=== PATIENT | female | born 1960 | race Caucasian/White ===

== ENCOUNTER 2023-12-08 23:49 | Inpatient (IN) | payer OTHER ==
--- NOTE | 2023-12-09 00:11 | ED ---
General Adult HPI - General Chief complaint: Extremity Injury, Lower Stated complaint: Infection on Leg Time Seen by Provider: 12/09/23 00:08 Source: patient, RN notes reviewed Mode of arrival: wheelchair Limitations: no limitations - History of Present Illness Initial comments: 63-year-old female with history of type 2 diabetes mellitus and right below the knee amputation presents emergency department chief complaint of a abscess in her right groin. Patient states that this abscess has been present over the past week that has been growing in size in addition to becoming more increasingly painful. States that over the past few days she has been began to experience fevers and chills in addition to nausea. She denies drainage from the abscess. She denies abdominal pain, diarrhea, constipation, urinary symptoms, chest pain, shortness of breath, difficulty breathing. - Related Data Home Medications Medication Instructions Recorded Confirmed Fenofibrate 120 mg PO HS 12/09/23 12/09/23 Gabapentin [Neurontin] 900 mg PO TID 12/09/23 12/09/23 Semaglutide [Ozempic] 1 mg SQ FR 12/09/23 12/09/23 Torsemide [Soaanz] 20 mg PO DAILY 12/09/23 12/09/23 amLODIPine [Norvasc] 10 mg PO HS 12/09/23 12/09/23 carvediloL [Coreg] 6.25 mg PO BID 12/09/23 12/09/23 lisinopriL 20 mg PO BID 12/09/23 12/09/23 sitaGLIPtin [Januvia] 100 mg PO DAILY 12/09/23 12/09/23 Allergies Allergy/AdvReac Type Severity Reaction Status Date / Time acetaminophen Allergy Rash/Hives Verified 12/09/23 08:38 [From Tylenol-Codeine #3] codeine Allergy Rash/Hives Verified 12/09/23 08:38 [From Tylenol-Codeine #3] morphine AdvReac Nausea & Verified 12/09/23 08:38 Vomiting Review of Systems ROS Statement: Those systems with pertinent positive or pertinent negative responses have been documented in the HPI. ROS Other: All systems not noted in ROS Statement are negative. Past Medical History Past Medical History: Diabetes Mellitus, Hyperlipidemia, Hypertension Additional Past Surgical History / Comment(s): R leg amputation (2021) Smoking Status: Never smoker Past Alcohol Use History: None Reported Past Drug Use History: None Reported General Exam Limitations: no limitations General appearance: alert, in no apparent distress Head exam: Present: atraumatic, normocephalic, normal inspection Eye exam: Present: normal appearance, PERRL, EOMI. Absent: scleral icterus, conjunctival injection, periorbital swelling ENT exam: Present: normal exam, mucous membranes moist Respiratory exam: Present: normal lung sounds bilaterally. Absent: respiratory distress, wheezes, rales, rhonchi, stridor Cardiovascular Exam: Present: regular rate, normal rhythm, normal heart sounds. Absent: systolic murmur, diastolic murmur, rubs, gallop, clicks GI/Abdominal exam: Present: soft, normal bowel sounds. Absent: distended, tenderness, guarding, rebound, rigid Right Lower Leg exam: Absent: normal inspection (below the knee amputation), full ROM Neurological exam: Present: alert, oriented X3, CN II-XII intact Psychiatric exam: Present: normal affect, normal mood Skin exam: Present: erythema, other (right groin erythematous fluctuant area measuring aprox. 5 cm by 4 cm, no signs of active purulence or drainage) Course Vital Signs 12/08/23 12/09/23 23:51 02:36 Temperature 99.2 F 99.8 F H Pulse Rate 99 95 Respiratory 18 18 Rate Blood Pressure 144/62 110/60 O2 Sat by Pulse 98 90 L Oximetry Medical Decision Making - Medical Decision Making Was pt. sent in by a medical professional or institution (ARIANA Guzmán, VAT OPERATOR, urgent care, hospital, or fci...) When possible be specific @ -No Did you speak to anyone other than the patient for history (EMS, parent, family, police, friend...)? What history was obtained from this source @ -No Did you review nursing and triage notes (agree or disagree)? Why? @ -I reviewed and agree with nursing and triage notes Were old charts reviewed (outside hosp., previous admission, EMS record, old EKG, old radiological studies, urgent care reports/EKG's, fci records)? Report findings @ -No old charts were reviewed Differential Diagnosis (chest pain, altered mental status, abdominal pain women, abdominal pain men, vaginal bleeding, weakness, fever, dyspnea, syncope, headach e, dizziness, GI bleed, back pain, seizure, CVA, palpatations, mental health, musculoskeletal)? @ -Cellulitis, abscess, Yaw's gangrene, this list is not all inclusive EKG interpreted by me (3pts min.). @ -none X-rays interpreted by me (1pt min.). @ -None done CT interpreted by me (1pt min.). @ -CT scan of the pelvis without contrast reveals a skin thickening along the medial aspect of the right upper thigh with subadjacent soft tissue attenuation, no drainable fluid component or abscess. U/S interpreted by me (1pt. min.). @ -None done What testing was considered but not performed or refused? (CT, X-rays, U/S, labs)? Why? @ -None What meds were considered but not given or refused? Why? @ -None Did you discuss the management of the patient with other professionals (professionals i.e. , PA, VAT OPERATOR, lab, RT, psych nurse, social studies department chair, tripoler, teacher, first aid officer, spring encaser)? Give summary @ -spoke with [facility] in regard to admission for IV antiboitcs for cellulitis and gentle fluid hydration for NIKOLE, patient is accepted. Was smoking cessation discussed for >3mins.? @ -No Was critical care preformed (if so, how long)? @ -No Were there social determinants of health that impacted care today? How? (Homelessness, low income, unemployed, alcoholism, drug addiction, transportation, low edu. Level, literacy, decrease access to med. care, custodial, rehab)? @ -No Was there de-escalation of care discussed even if they declined (Discuss DNR or withdrawal of care, Hospice)? DNR status @ -No What co-morbidities impacted this encounter? (DM, HTN, Smoking, COPD, CAD, Cancer, CVA, ARF, Chemo, Hep., AIDS, mental health diagnosis, sleep apnea, morbid obesity)? @ -DM, HTN Was patient admitted / discharged? Hospital course, mention meds given and route, prescriptions, significant lab abnormalities, going to OR and other pertinent info. @ -admitted. 63-year-old female with abscess. On examination patient noted to have a large fluctuant abscess of the right groin that is mildly erythematous and painful to palpation. Patient is provided with Tylenol and fluids pending labs and CT imaging. CBC reveals anemia with hemoglobin 9.5 and hematocrit 29, no evidence of leukocytosis, hyperglycemia of 492 corrected sodium of 133, elevated BUN of 50 creatinine 2.87, lactic acid nonelevated at 1.0 elevated BUN and creatinine she will be sent for CT imaging without contrast for further evaluation of abscess in the pelvis. Provided with 10 units insulin due to hyperglycemia. Additionally CT scan results concerning for cellulitis and el evated BUN and creatinine she will be admitted to the hospital for IV fluid hydration and IV antibiotics for cellulitis and NIKOLE. Discussed with Dr. Lisa. Undiagnosed new problem with uncertain prognosis? @ -No Drug Therapy requiring intensive monitoring for toxicity (Heparin, Nitro, Insulin, Cardizem)? @ -No Were any procedures done? @ -No Diagnosis/symptom? @ -Cellulitis, acute kidney injury Acute, or Chronic, or Acute on Chronic? @ -Acute Uncomplicated (without systemic symptoms) or Complicated (systemic symptoms)? @ -Complicated Side effects of treatment? @ -No Exacerbation, Progression, or Severe Exacerbation? @ -No Poses a threat to life or bodily function? How? (Chest pain, USA, GA, pneumonia, PE, COPD, DKA, ARF, appy, cholecystitis, CVA, Diverticulitis, Homicidal, S uicidal, threat to staff... and all critical care pts) @ -No - Lab Data Result diagrams: 12/11/23 07:58 12/11/23 07:58 Lab Results 12/09/23 12/09/23 12/09/23 Range/Units 00:36 00:36 00:36 WBC 9.2 (3.8-10.6) k/uL RBC 3.18 L (3.80-5.40) m/uL Hgb 9.5 L (11.4-16.0) gm/dL Hct 29.0 L (34.0-46.0) % MCV 91.1 (80.0-100.0) fL MCH 29.9 (25.0-35.0) pg MCHC 32.8 (31.0-37.0) g/dL RDW 12.9 (11.5-15.5) % Plt Count 290 (150-450) k/uL MPV 9.3 Neutrophils % 79 % Lymphocytes % 13 % Monocytes % 6 % Eosinophils % 0 % Basophils % 0 % Neutrophils # 7.3 (1.3-7.7) k/uL Lymphocytes # 1.2 (1.0-4.8) k/uL Monocytes # 0.6 (0-1.0) k/uL Eosinophils # 0.0 (0-0.7) k/uL Basophils # 0.0 (0-0.2) k/uL Sodium 127 L (137-145) mmol/L Potassium 5.2 H (3.5-5.1) mmol/L Chloride 94 L (98-107) mmol/L Carbon Dioxide 26 (22-30) mmol/L Anion Gap 7 mmol/L BUN 50 H (7-17) mg/dL Creatinine 2.87 H (0.52-1.04) mg/dL Est GFR (CKD-EPI)AfAm 20 (>60 ml/min/1.73 sqM) Est GFR (CKD-EPI)NonAf 17 (>60 ml/min/1.73 sqM) Glucose 492 H (74-99) mg/dL Plasma Lactic Acid Pablo 1.0 (0.7-2.0) mmol/L Calcium 8.8 (8.4-10.2) mg/dL Total Bilirubin 0.6 (0.2-1.3) mg/dL AST 15 (14-36) U/L ALT 9 (4-34) U/L Alkaline Phosphatase 93 (38-126) U/L C-Reactive Protein 26.4 H (<1.0) mg/dL Total Protein 6.1 L (6.3-8.2) g/dL Albumin 3.5 (3.5-5.0) g/dL Disposition Clinical Impression: Cellulitis Disposition: ADMITTED IP TO THIS [facility] Condition: Poor Decision to Admit Reason: Admit from EC Decision Date: 12/09/23 Decision Time: 02:21
[2023-12-09 01:06] LABS: ALT 9 U/L (4-34); AST 15 U/L (14-36); African American GFR (CKD) 20 (>60 ml/min/1.73 sqM); Albumin 3.5 g/dL (3.5-5.0); Alkaline Phosphatase 93 U/L (38-126); Anion Gap 7 mmol/L; Blood Urea Nitrogen 50 mg/dL (7-17); Calcium 8.8 mg/dL (8.4-10.2); Carbon Dioxide 26 mmol/L (22-30); Chloride 94 mmol/L (98-107); Glucose 492 mg/dL (74-99); Non-African American GFR(CKD) 17 (>60 ml/min/1.73 sqM); Potassium 5.2 mmol/L (3.5-5.1); Sodium 127 mmol/L (137-145); Total Bilirubin 0.6 mg/dL (0.2-1.3); Total Protein 6.1 g/dL (6.3-8.2)
[2023-12-09 01:13] LABS: Basophils % (A) 0 %; Eosinophils % (A) 0 %; HGB 9.5 gm/dL (11.4-16.0); Lymphocytes # (A) 1.2 k/uL (1.0-4.8); Lymphocytes % (A) 13 %; MCH 29.9 pg (25.0-35.0); MCHC 32.8 g/dL (31.0-37.0); MCV 91.1 fL (80.0-100.0); Mean Platelet Volume 9.3; Monocytes # (A) 0.6 k/uL (0-1.0); Monocytes % (A) 6 %; Neutrophils # (A) 7.3 k/uL (1.3-7.7); Neutrophils % (A) 79 %; Platelet Count 290 k/uL (150-450); RBC 3.18 m/uL (3.80-5.40); RDW 12.9 % (11.5-15.5); WBC 9.2 k/uL (3.8-10.6)
[2023-12-09] MEDS: INSULIN REGULAR 100 UNIT/ML VIAL (IV) IV ONE (01:37)
[2023-12-09] MEDS: ACETAMINOPHEN TAB 500 MG TAB PO STA ×2 (01:38→22:10)
[2023-12-09] MEDS: SODIUM CHLORIDE 0.9% 1,000 ML IV STA (01:40)
[2023-12-09 01:51] LABS: C Reactive Protein 26.4 mg/dL (<1.0)
--- NOTE | 2023-12-09 02:11 | CT ---
EXAM: CT Pelvis Without Intravenous Contrast CLINICAL HISTORY: ITS.REASON CT Reason: right groin pain, abscess TECHNIQUE: Axial computed tomography images of the pelvis without intravenous contrast. CTDI is 12.8 mGy and DLP is 597.7 mGy-cm. This CT exam was performed using one or more of the following dose reduction techniques: automated exposure control, adjustment of the mA and/or kV according to patient size, and/or use of iterative reconstruction technique. COMPARISON: No relevant prior studies available. FINDINGS: Soft tissues: Skin thickening along the medial aspect of the RIGHT upper thigh, with subjacent soft tissue attenuation. Findings are consistent with cellulitis. No drainable fluid component/abscess at this time. Vasculature: Unremarkable. No lower abdominal aortic aneurysm. Lymph nodes: Unremarkable. No enlarged lymph nodes. IMPRESSION: Skin thickening along the medial aspect of the RIGHT upper thigh, with subjacent soft tissue attenuation. Findings are consistent with cellulitis. No drainable fluid component/abscess at this time.
[2023-12-09] MEDS ORDERED: NALOXONE 0.4 MG/ML 1 ML VIAL IV PRN (02:17)
[2023-12-09 02:34] LABS: Glucose,Whole Blood 344 mg/dL (70-110)
[2023-12-09] MEDS: SODIUM CHLORIDE 0.9% 1,000 ML IV SCH (04:59)
[2023-12-09] MEDS: CLINDAMYCIN 600 MG/50 ML-D5W 600 MG in DEXTROSE/WATER 1 50ML.BAG IVPB SCH (05:00)
[2023-12-09 05:56] LABS: Glucose,Whole Blood 386 mg/dL (70-110)
[2023-12-09 07:07] LABS: Glucose,Whole Blood 427 mg/dL (70-110)
[2023-12-09] MEDS ORDERED: DEXTROSE 50% SYRINGE 50 ML IVP PRN ×2 (08:17)
[2023-12-09] MEDS: INSULIN ASPART (NovoLOG) 100 UNIT/ML VIAL SQ SCH (09:22)
[2023-12-09] MEDS: ZINC OXIDE PASTE (Z-GUARD) 1 APPLIC TOPICAL SCH (09:25)
[2023-12-09 10:39] LABS: Basophils % (A) 1 %; Eosinophils # (A) 0.1 k/uL (0-0.7); Eosinophils % (A) 1 %; HCT 28.2 % (34.0-46.0); HGB 9.4 gm/dL (11.4-16.0); Lymphocytes # (A) 1.1 k/uL (1.0-4.8); Lymphocytes % (A) 11 %; MCH 30.3 pg (25.0-35.0); MCHC 33.3 g/dL (31.0-37.0); MCV 90.9 fL (80.0-100.0); Mean Platelet Volume 11.3; Monocytes # (A) 0.5 k/uL (0-1.0); Monocytes % (A) 5 %; Neutrophils # (A) 7.8 k/uL (1.3-7.7); Neutrophils % (A) 82 %; Platelet Count 255 k/uL (150-450); RDW 13.2 % (11.5-15.5); WBC 9.5 k/uL (3.8-10.6)
[2023-12-09 10:57] LABS: ALT 10 U/L (4-34); AST 16 U/L (14-36); African American GFR (CKD) 21 (>60 ml/min/1.73 sqM); Albumin 3.2 g/dL (3.5-5.0); Albumin/Globulin Ratio 1.3; Alkaline Phosphatase 86 U/L (38-126); Anion Gap 7 mmol/L; Blood Urea Nitrogen 51 mg/dL (7-17); Calcium 8.5 mg/dL (8.4-10.2); Carbon Dioxide 24 mmol/L (22-30); Chloride 100 mmol/L (98-107); Globulin 2.5 g/dL; Glucose 448 mg/dL (74-99); Non-African American GFR(CKD) 18 (>60 ml/min/1.73 sqM); Potassium 4.2 mmol/L (3.5-5.1); Sodium 131 mmol/L (137-145); Total Bilirubin 0.5 mg/dL (0.2-1.3); Total Protein 5.7 g/dL (6.3-8.2)
[2023-12-09 11:40] LABS: Glucose,Whole Blood 457 mg/dL (70-110)
[2023-12-09] MEDS ORDERED: INSULIN ASPART (NovoLOG) 100 UNIT/ML VIAL SQ SCH (12:30)
[2023-12-09] MEDS: INSULIN DETEMIR (LEVEMIR) 100 UNIT/ML SYR SQ SCH (13:18)
[2023-12-09 17:09] LABS: Glucose,Whole Blood 414 mg/dL (70-110)
--- NOTE | 2023-12-09 19:53 | P.HPIM ---
History of Present Illness H&P Date: 12/09/23 This is a 63-year-old female who presented to the emergency department with increasing pain and swelling of the right groin and medial thigh to buttock area. Patient reports over the last 7 days it has progressively gotten worse and initially she thought it was just a pimple. Patient currently lives in [place] and is out here camping. Patient's primary care provider in her hometown and reports has a history of diabetes mellitus, hypertension, hyperlipidemia. Patient reports she was also having fever over the last few days. Patient's white count is normal on admission and patient did undergo CT of the right thigh area and appears to be consistent with cellulitis. Concern for abscess collection or possible need for drainage on physical exam and will consult general surgery and appreciate input and recommendations. Patient currently started on clindamycin and will discuss with infectious disease as patient may require something more than this. Will follow-up on repeat labs and continue with gentle hydration and monitor kidney functions. Blood sugars are completely uncontrolled and will adjust medications and insulins accordingly. REVIEW OF SYSTEMS: CONSTITUTIONAL: No fever, no malaise, no fatigue. HEENT: No recent visual problems or hearing problems. Denied any sore throat. CARDIOVASCULAR: No chest pain, orthopnea, PND, no palpitations, no syncope. PULMONARY: No shortness of breath, no cough, no hemoptysis. GASTROINTESTINAL: No diarrhea, no nausea, no vomiting, no abdominal pain. NEUROLOGICAL: No headaches, no weakness, no numbness. HEMATOLOGICAL: Denies any bleeding or petechiae. GENITOURINARY: Denies any burning micturition, frequency, or urgency. MUSCULOSKELETAL/RHEUMATOLOGICAL: Denies any joint pain, swelling, or any muscle pain. ENDOCRINE: Denies any polyuria or polydipsia. Skin: Reports of significant pain and redness and swelling of the right inner thigh and buttock area The rest of the 14-point review of systems is negative. PHYSICAL EXAMINATION: GENERAL: The patient is alert and oriented x3, not in any acute distress. Well developed, well nourished. Elderly appearing, obese HEENT: Pupils are round and equally reacting to light. EOMI. No scleral icterus. No conjunctival pallor. Normocephalic, atraumatic. No pharyngeal erythema. No thyromegaly. CARDIOVASCULAR: S1 and S2 present. No murmurs, rubs, or gallops. PULMONARY: Chest is clear to auscultation, no wheezing or crackles. ABDOMEN: Soft, obese, nontender, nondistended, normoactive bowel sounds. No palpable organomegaly. MUSCULOSKELETAL: No joint swelling or deformity. EXTREMITIES: No cyanosis, clubbing, or pedal edema. Right medial groin and thigh area with significant redness and discoloration and induration NEUROLOGICAL: Gross neurological examination did not reveal any focal deficits. SKIN: No rashes. Other than mentioned above Assessment: Right groin pain with concerns of possible abscess with surrounding cellulitis Fevers, secondary to above Diabetes mellitus, type II, uncontrolled with hyperglycemia, pending hemoglobin A1c Obesity with a BMI of 35.4 NIKOLE, acute tubular necrosis History of hyperlipidemia History of hypertension History of right BKA in 2021, surgical site is healed and well approximated with no redness or swelling noted GI prophylaxis DVT prophylaxis Full code Plan: The patient was started on antibiotics and infectious disease on consult Home medications reviewed and resumed as appropriate. Will continue with Accu- Cheks before meals and at bedtime and sliding scale along with long-acting. Patient's blood sugars are completely uncontrolled and patient reports she has not been able to control her sugars over the last few days. Hemoglobin A1c is pending Will adjust pain management and also order home medications Continue with gentle IV hydration and follow-up on repeat labs. Kidney functions are improving. Patient most likely has chronic kidney disease although unable to verify as patient lives in [place] and is up here camping currently Will consult general surgery to evaluate for possible abscess or fluid collection as the area is significantly reddened with discoloration and induration Recommend warm compresses 3 times daily to the area Repeat labs ordered for a.m. The impression and plan of care has been dictated by Betty Stewart, Nurse Practitioner as directed. Dr. Sheyla MD I have performed a history and examination and MDM of this patient, discussed the same with the dictator, and agree with the dictator's assessment and plan as written ,documented as a scribe. Based on total visit time, I have performed more than 50% of the visit. Past Medical History Past Medical History: Diabetes Mellitus, Hyperlipidemia, Hypertension History of Any Multi-Drug Resistant Organisms: None Reported Additional Past Surgical History / Comment(s): R leg BKA (2021) Past Psychological History: No Psychological Hx Reported Smoking Status: Never smoker Past Alcohol Use History: None Reported Past Drug Use History: None Reported Medications and Allergies Home Medications Medication Instructions Recorded Confirmed Type Fenofibrate 120 mg PO HS 12/09/23 12/09/23 History Gabapentin [Neurontin] 900 mg PO TID 12/09/23 12/09/23 History Semaglutide [Ozempic] 1 mg SQ FR 12/09/23 12/09/23 History Torsemide [Soaanz] 20 mg PO DAILY 12/09/23 12/09/23 History amLODIPine [Norvasc] 10 mg PO HS 12/09/23 12/09/23 History carvediloL [Coreg] 6.25 mg PO BID 12/09/23 12/09/23 History lisinopriL 20 mg PO BID 12/09/23 12/09/23 History sitaGLIPtin [Januvia] 100 mg PO DAILY 12/09/23 12/09/23 History Allergies Allergy/AdvReac Type Severity Reaction Status Date / Time acetaminophen Allergy Rash/Hives Verified 12/09/23 08:38 [From Tylenol-Codeine #3] codeine Allergy Rash/Hives Verified 12/09/23 08:38 [From Tylenol-Codeine #3] morphine AdvReac Nausea & Verified 12/09/23 08:38 Vomiting Physical Exam Vitals: Vital Signs Temp Pulse Pulse Resp BP BP BP 12/09/23 06:53 98.2 F 90 17 125/67 12/09/23 05:09 98 F 83 16 136/77 12/09/23 03:29 99.6 F 93 14 106/67 12/09/23 02:36 99.8 F H 95 18 110/60 12/08/23 23:51 99.2 F 99 18 144/62 Pulse Ox 12/09/23 06:53 92 L 12/09/23 05:09 98 12/09/23 03:29 99 12/09/23 02:36 90 L 12/08/23 23:51 98 Intake and Output 12/08/23 12/09/23 12/09/23 22:59 06:59 14:59 Other: Voiding Method Bedside Commode # Voids 2 # Bowel Movements 1 Weight 90.718 kg Results CBC & Chem 7: 12/09/23 10:24 12/09/23 10:24 Labs: Abnormal Lab Results - Last 24 Hours (Table) 12/09/23 12/09/23 12/09/23 Range/Units 00:36 00:36 02:32 RBC 3.18 L (3.80-5.40) m/uL Hgb 9.5 L (11.4-16.0) gm/dL Hct 29.0 L (34.0-46.0) % Sodium 127 L (137-145) mmol/L Potassium 5.2 H (3.5-5.1) mmol/L Chloride 94 L (98-107) mmol/L BUN 50 H (7-17) mg/dL Creatinine 2.87 H (0.52-1.04) mg/dL Glucose 492 H (74-99) mg/dL POC Glucose (mg/dL) 344 H (70-110) mg/dL C-Reactive Protein 26.4 H (<1.0) mg/dL Total Protein 6.1 L (6.3-8.2) g/dL 12/09/23 12/09/23 Range/Units 05:53 06:55 RBC (3.80-5.40) m/uL Hgb (11.4-16.0) gm/dL Hct (34.0-46.0) % Sodium (137-145) mmol/L Potassium (3.5-5.1) mmol/L Chloride (98-107) mmol/L BUN (7-17) mg/dL Creatinine (0.52-1.04) mg/dL Glucose (74-99) mg/dL POC Glucose (mg/dL) 386 H 427 H (70-110) mg/dL C-Reactive Protein (<1.0) mg/dL Total Protein (6.3-8.2) g/dL Thrombosis Risk Factor Assmnt - Choose All That Apply Each Factor Represents 1 point: Obesity (BMI >25) Other Risk Factors: Yes Each Risk Factor Represents 2 Points: Age 61-74 years Other congenital or acquired thrombophilia - If yes, enter type in comment: No Thrombosis Risk Factor Assessment Total Risk Factor Score: 3 Thrombosis Risk Factor Assessment Level: Moderate Risk
[2023-12-09 20:15] LABS: Glucose,Whole Blood 318 mg/dL (70-110)
[2023-12-09] MEDS: INSULIN ASPART (NovoLOG) 100 UNIT/ML VIAL SQ ONE (21:59)
[2023-12-09] MEDS: FENOFIBRATE 160 MG TAB PO SCH (22:11)
[2023-12-09] MEDS: GABAPENTIN 300 MG CAP PO SCH (22:12)
[2023-12-09] MEDS: carvediloL 6.25 MG TAB PO SCH (22:12)
[2023-12-09] MEDS: amLODIPine 10 MG TAB PO SCH (22:12)
[2023-12-10 07:30] LABS: Glucose,Whole Blood 159 mg/dL (70-110)
[2023-12-10 09:29] LABS: ALT 9 U/L (8-44); AST 12 U/L (13-35); Albumin 3.4 g/dL (3.8-4.9); Albumin/Globulin Ratio 1.31 Ratio (1.60-3.17); Alkaline Phosphatase 81 U/L (41-126); BUN/Creat Ratio 16.86 Ratio (12.00-20.00); Blood Urea Nitrogen 37.1 mg/dL (9.0-27.0); Calcium 9.1 mg/dL (8.7-10.3); Chloride 101 mmol/L (96-109); Globulin 2.6 g/dL (1.6-3.3); Glucose 152 mg/dL (70-110); Potassium 4.2 mmol/L (3.5-5.5); Sodium 139 mmol/L (135-145); Total Bilirubin <0.2 mg/dL (0.3-1.2)
[2023-12-10 09:42] LABS: Basophils # (A) 0.04 X 10*3/uL (0.00-0.10); Basophils % (A) 0.4 %; Eosinophils % (A) 0.9 %; HGB 9.5 g/dL (12.0-15.0); Lymphocytes # (A) 1.65 X 10*3/uL (0.90-5.00); Lymphocytes % (A) 14.6 %; MCH 29.2 pg (27.0-32.0); MCHC 32.8 g/dL (32.0-37.0); MCV 89.2 FL (80.0-97.0); Mean Platelet Volume 11.7 FL (9.5-12.2); Monocytes # (A) 0.98 X 10*3/uL (0.20-1.00); Monocytes % (A) 8.7 %; NRBC Per 100 WBC 0 X 10*3/uL (0.00-0.01); Neutrophils % (A) 74.2 %; Platelet Count 331 X 10*3/uL (140-440); RBC 3.25 X 10*6/uL (4.10-5.20); RDW 12.2 % (11.5-14.5)
--- NOTE | 2023-12-10 10:38 | P.GSCN ---
History of Present Illness Consult date: 12/10/23 History of present illness: CHIEF COMPLAINT: Right groin abscess HISTORY OF PRESENT ILLNESS: This is a 63-year-old female who presented with right groin pain and concerns for right groin abscess. Patient reports that it started as a boil about a week ago. She is a diabetic with uncontrolled blood sugars hemoglobin A1c of 15.8. CT scan of the pelvis had shown evidence of cellulitis in the right groin and no evidence of abscess. Patient did have a fever of 101.8 last night. Patient has had no drainage from the right groin. PAST MEDICAL HISTORY: Diabetes Mellitus, Hyperlipidemia, Hypertension PAST SURGICAL HISTORY: R leg BKA (2021) MEDICATIONS: See below ALLERGIES: See below SOCIAL HISTORY: No illicit drug use. REVIEW OF SYSTEMS: CONSTITUTIONAL: Denies fever or chills. HEENT: Denies blurred vision, vision changes, or eye pain. Denies hemoptysis CARDIOVASCULAR: Denies chest pain or pressure. RESPIRATORY: No shortness of breath. GASTROINTESTINAL: See HPI for pertinent findings HEMATOLOGIC: Denies bleeding disorders. GENITOURINARY: Denies any blood in urine or increased urinary frequency. SKIN: Denies pruitis. Denies rash. PHYSICAL EXAM: VITAL SIGNS: Reviewed GENERAL: Well-developed in no acute distress. HEENT: No sclera icterus. Extraocular movements grossly intact. Moist buccal mucosa. Head is atraumatic, normocephalic. No nasal drainage. ABDOMEN: Soft. Nondistended. Nontender NEUROLOGIC: Alert and oriented. Cranial nerves II through XII grossly intact. Extremities: Right groin area of induration. Tender with palpation. No palpable fluid collection or fluctuance. No drainage. LABORATORY DATA: WBC 9.5 up to 11.3 Hgb 9.5 platelets 331 Sodium 139 potassium 4.2 creatinine 2.2 Hemoglobin A1c 15.8 Glucose 152 IMAGING: CT pelvis reports skin thickening along the medial aspect of the right upper thigh with subs adjacent soft tissue attenuation findings consistent with cellulitis. No drainable fluid component/abscess at this time ASSESSMENT: 1. Right groin induration with no evidence of abscess noted on CT 2. Uncontrolled diabetes mellitus PLAN: -No surgical intervention planned -Continue IV antibiotics -Continue to monitor -Recommend blood sugar control Thank you for this consultation Physician Unit Manager Rn note has been reviewed by physician. Signing provider agrees with the documented findings, assessment, and plan of care. Past Medical History Past Medical History: Diabetes Mellitus, Hyperlipidemia, Hypertension History of Any Multi-Drug Resistant Organisms: None Reported Additional Past Surgical History / Comment(s): R leg BKA (2021) Past Psychological History: No Psychological Hx Reported Smoking Status: Never smoker Past Alcohol Use History: None Reported Past Drug Use History: None Reported Medications and Allergies Home Medications Medication Instructions Recorded Confirmed Type Fenofibrate 120 mg PO HS 12/09/23 12/09/23 History Gabapentin [Neurontin] 900 mg PO TID 12/09/23 12/09/23 History Semaglutide [Ozempic] 1 mg SQ FR 12/09/23 12/09/23 History Torsemide [Soaanz] 20 mg PO DAILY 12/09/23 12/09/23 History amLODIPine [Norvasc] 10 mg PO HS 12/09/23 12/09/23 History carvediloL [Coreg] 6.25 mg PO BID 12/09/23 12/09/23 History lisinopriL 20 mg PO BID 12/09/23 12/09/23 History sitaGLIPtin [Januvia] 100 mg PO DAILY 12/09/23 12/09/23 History Allergies Allergy/AdvReac Type Severity Reaction Status Date / Time acetaminophen Allergy Rash/Hives Verified 12/09/23 08:38 [From Tylenol-Codeine #3] codeine Allergy Rash/Hives Verified 12/09/23 08:38 [From Tylenol-Codeine #3] morphine AdvReac Nausea & Verified 12/09/23 08:38 Vomiting Surgical - Exam Vital Signs Temp Pulse Resp BP Pulse Ox 99.2 F 99 18 144/62 98 12/08/23 23:51 12/08/23 23:51 12/08/23 23:51 12/08/23 23:51 12/08/23 23:51 Results - Labs 12/10/23 04:27 12/10/23 04:27 Abnormal Lab Results - Last 24 Hours (Table) 12/09/23 12/09/23 12/09/23 Range/Units 10:24 10:24 10:24 RBC 3.10 L (3.80-5.40) m/uL Hgb 9.4 L (11.4-16.0) gm/dL Hct 28.2 L (34.0-46.0) % Neutrophils # 7.8 H (1.3-7.7) k/uL Sodium 131 L (137-145) mmol/L Anion Gap (4.00-12.00) mmol/L BUN 51 H (7-17) mg/dL Creatinine 2.75 H (0.52-1.04) mg/dL Est GFR (CKD-EPI) (>=60) Glucose 448 H (74-99) mg/dL POC Glucose (mg/dL) (70-110) mg/dL Hemoglobin A1c 15.8 H (<=6.0) % Total Bilirubin (0.3-1.2) mg/dL AST (13-35) U/L Total Protein 5.7 L (6.3-8.2) g/dL Albumin 3.2 L (3.5-5.0) g/dL Albumin/Globulin Ratio (1.60-3.17) Ratio 12/09/23 12/09/23 12/09/23 Range/Units 11:37 17:07 20:13 RBC (3.80-5.40) m/uL Hgb (11.4-16.0) gm/dL Hct (34.0-46.0) % Neutrophils # (1.3-7.7) k/uL Sodium (137-145) mmol/L Anion Gap (4.00-12.00) mmol/L BUN (7-17) mg/dL Creatinine (0.52-1.04) mg/dL Est GFR (CKD-EPI) (>=60) Glucose (74-99) mg/dL POC Glucose (mg/dL) 457 H 414 H 318 H (70-110) mg/dL Hemoglobin A1c (<=6.0) % Total Bilirubin (0.3-1.2) mg/dL AST (13-35) U/L Total Protein (6.3-8.2) g/dL Albumin (3.5-5.0) g/dL Albumin/Globulin Ratio (1.60-3.17) Ratio 12/10/23 12/10/23 Range/Units 04:27 07:15 RBC (3.80-5.40) m/uL Hgb (11.4-16.0) gm/dL Hct (34.0-46.0) % Neutrophils # (1.3-7.7) k/uL Sodium (137-145) mmol/L Anion Gap 13.00 H (4.00-12.00) mmol/L BUN 37.1 H (7-17) mg/dL Creatinine 2.2 H (0.52-1.04) mg/dL Est GFR (CKD-EPI) 25 L (>=60) Glucose 152 H (74-99) mg/dL POC Glucose (mg/dL) 159 H (70-110) mg/dL Hemoglobin A1c (<=6.0) % Total Bilirubin <0.2 L (0.3-1.2) mg/dL AST 12 L (13-35) U/L Total Protein 6.0 L (6.3-8.2) g/dL Albumin 3.4 L (3.5-5.0) g/dL Albumin/Globulin Ratio 1.31 L (1.60-3.17) Ratio Diabetes panel 12/09/23 12/09/23 12/10/23 Range/Units 10: 10: 04:27 Sodium 131 L 139 (137-145) mmol/L Potassium 4.2 4.2 (3.5-5.1) mmol/L Chloride 100 101 (98-107) mmol/L Carbon Dioxide 24 25.0 (22-30) mmol/L BUN 51 H 37.1 H (7-17) mg/dL Creatinine 2.75 H 2.2 H (0.52-1.04) mg/dL Glucose 448 H 152 H (74-99) mg/dL Hemoglobin A1c 15.8 H (<=6.0) % Calcium 8.5 9.1 (8.4-10.2) mg/dL AST 16 12 L (14-36) U/L ALT 10 9 (4-34) U/L Alkaline Phosphatase 86 81 (38-126) U/L Total Protein 5.7 L 6.0 L (6.3-8.2) g/dL Albumin 3.2 L 3.4 L (3.5-5.0) g/dL Calcium panel 12/09/23 12/10/23 Range/Units 10: 04:27 Calcium 8.5 9.1 (8.4-10.2) mg/dL Albumin 3.2 L 3.4 L (3.5-5.0) g/dL Pituitary panel 12/09/23 12/10/23 Range/Units 10: 04:27 Sodium 131 L 139 (137-145) mmol/L Potassium 4.2 4.2 (3.5-5.1) mmol/L Chloride 100 101 (98-107) mmol/L Carbon Dioxide 24 25.0 (22-30) mmol/L BUN 51 H 37.1 H (7-17) mg/dL Creatinine 2.75 H 2.2 H (0.52-1.04) mg/dL Glucose 448 H 152 H (74-99) mg/dL Calcium 8.5 9.1 (8.4-10.2) mg/dL Adrenal panel 12/09/23 12/10/23 Range/Units 10: 04:27 Sodium 131 L 139 (137-145) mmol/L Potassium 4.2 4.2 (3.5-5.1) mmol/L Chloride 100 101 (98-107) mmol/L Carbon Dioxide 24 25.0 (22-30) mmol/L BUN 51 H 37.1 H (7-17) mg/dL Creatinine 2.75 H 2.2 H (0.52-1.04) mg/dL Glucose 448 H 152 H (74-99) mg/dL Calcium 8.5 9.1 (8.4-10.2) mg/dL Total Bilirubin 0.5 <0.2 L (0.2-1.3) mg/dL AST 16 12 L (14-36) U/L ALT 10 9 (4-34) U/L Alkaline Phosphatase 86 81 (38-126) U/L Total Protein 5.7 L 6.0 L (6.3-8.2) g/dL Albumin 3.2 L 3.4 L (3.5-5.0) g/dL
[2023-12-10 11:33] LABS: Glucose,Whole Blood 160 mg/dL (70-110)
[2023-12-10 11:42] VITALS: BMI 35.4
[2023-12-10] MEDS: ACETAMINOPHEN TAB 325 MG TAB PO PRN (12:56)
[2023-12-10] MEDS: ONDANSETRON 4 MG/2 ML VIAL IVP PRN (13:15)
[2023-12-10] MEDS: PANTOPRAZOLE 40 MG/10 ML VIAL IVP SCH (16:04)
[2023-12-10 17:23] LABS: Glucose,Whole Blood 94 mg/dL (70-110)
[2023-12-10 20:09] LABS: Glucose,Whole Blood 155 mg/dL (70-110)
[2023-12-10] MEDS ORDERED: FENOFIBRATE 160 MG TAB ONE (21:00)
[2023-12-10] MEDS ORDERED: INSULIN DETEMIR (LEVEMIR) 100 UNIT/ML SYR SQ ONE (21:00)
[2023-12-10] MEDS ORDERED: PANTOPRAZOLE 40 MG/10 ML VIAL ONE (21:00)
[2023-12-10] MEDS ORDERED: amLODIPine 10 MG TAB ONE (21:00)
[2023-12-10] MEDS ORDERED: carvediloL 6.25 MG TAB ONE (21:00)
[2023-12-10] MEDS ORDERED: INSULIN ASPART (NovoLOG) 100 UNIT/ML VIAL SQ ONE (21:00)
--- NOTE | 2023-12-10 21:37 | P.CONS ---
History of Present Illness - Reason for Consult Consult date: 12/10/23 Right groin and thigh abscess Requesting physician: Betty Stewart - Chief Complaint Right knee pain and swelling x few days - History of Present Illness Patient is a 63-year-old female with a past medical history significant for diabetes mellitus hypertension hyperlipidemia presenting to the ER for evaluation of painful swelling to the right groin area apparently the patient symptoms started as a pimple that started about 7 days ago subsequently has increased in size and become more painful and bigger in size, patient describes the pain to be sharp almost 10 out of 10 in severity by the time she presented to hospital without any radiation with associated swelling did not have any drainage did have some chills and fever. Denies having any chest pain shortness with or cough no nausea no vomiting no abdominal pain or any diarrhea patient on presentation to the hospital did have a low-grade fever of 99.8 F patient was mildly tachycardic but not hypotensive or hypoxic and no need for supplemental oxygen did have white count of 11.30 with a left shift BUN and creatinine has been elevated liver isms are normal patient did have a pelvic CT skin thickening along the medial aspect of the right upper thigh with adjacent soft tissue attenuation finding consistent with cellulitis no drainable abscess patient was started on clindamycin infectious disease was consulted for further management of antibiotic therapy Review of Systems Positive point and negatives has been mentioned in the HPI, complete review of systems was performed and all other systems are negative Past Medical History Past Medical History: Diabetes Mellitus, Hyperlipidemia, Hypertension History of Any Multi-Drug Resistant Organisms: None Reported Additional Past Surgical History / Comment(s): R leg BKA (2021) Past Psychological History: No Psychological Hx Reported Smoking Status: Never smoker Past Alcohol Use History: None Reported Past Drug Use History: None Reported Medications and Allergies Home Medications Medication Instructions Recorded Confirmed Type Fenofibrate 120 mg PO HS 12/09/23 12/09/23 History Gabapentin [Neurontin] 900 mg PO TID 12/09/23 12/09/23 History Semaglutide [Ozempic] 1 mg SQ FR 12/09/23 12/09/23 History Torsemide [Soaanz] 20 mg PO DAILY 12/09/23 12/09/23 History amLODIPine [Norvasc] 10 mg PO HS 12/09/23 12/09/23 History carvediloL [Coreg] 6.25 mg PO BID 12/09/23 12/09/23 History lisinopriL 20 mg PO BID 12/09/23 12/09/23 History sitaGLIPtin [Januvia] 100 mg PO DAILY 12/09/23 12/09/23 History Amoxic-Pot Clav 500-125 mg 1 tab PO Q12HR #20 tab 12/14/23 Rx [Augmentin 500-125 mg] Doxycycline [Vibramycin] 100 mg PO BID 10 Days #20 capsule 12/14/23 Rx Allergies Allergy/AdvReac Type Severity Reaction Status Date / Time acetaminophen Allergy Rash/Hives Verified 12/09/23 08:38 [From Tylenol-Codeine #3] codeine Allergy Rash/Hives Verified 12/09/23 08:38 [From Tylenol-Codeine #3] morphine AdvReac Nausea & Verified 12/09/23 08:38 Vomiting Physical Exam Vitals: Vital Signs Temp Pulse Resp BP Pulse Ox 12/10/23 11:30 100.2 F H 84 15 136/64 12/10/23 07:11 98.8 F 96 14 142/74 96 12/10/23 02:00 98.6 F 81 12 148/66 92 L 12/09/23 19:22 101.8 F H 100 12 132/68 95 Intake and Output 12/10/23 12/10/23 12/10/23 06:59 14:59 22:59 Other: # Voids 3 Weight 90.718 kg GENERAL DESCRIPTION: Middle-aged female lying in bed, no distress. No tachypnea or accessory muscle of respiration use. HEENT: Shows Pallor , no scleral icterus. Oral mucous membrane is dry. No pha ryngeal erythema or thrush NECK: Trachea central, no thyromegaly. LUNGS: Unlabored breathing. Clear to auscultation anteriorly. No wheeze or crackle. HEART: S1, S2, regular rate and rhythm. No loud murmur ABDOMEN: Soft, no tenderness , guarding or rigidity, no organomegaly EXTREMITIES: No edema of feet. SKIN: Area of induration to the groin area which is tender to touch no fluctuation or drainage NEUROLOGICAL: The patient is awake, alert, oriented x3, mood and affect normal. Results CBC & Chem 7: 12/14/23 04:30 12/14/23 04:30 Labs: Abnormal Lab Results - Last 24 Hours (Table) 12/09/23 12/09/23 12/09/23 Range/Units 10:24 17:07 20:13 WBC (4.50-10.00) X 10*3/uL RBC (4.10-5.20) X 10*6/uL Hgb (12.0-15.0) g/dL Hct (37.2-46.3) % Immature Gran # (0.00-0.04) X 10*3/uL Neutrophils # (1.80-7.70) X 10*3/uL Anion Gap (4.00-12.00) mmol/L BUN (9.0-27.0) mg/dL Creatinine (0.6-1.5) mg/dL Est GFR (CKD-EPI) (>=60) Glucose (70-110) mg/dL POC Glucose (mg/dL) 414 H 318 H (70-110) mg/dL Hemoglobin A1c 15.8 H (<=6.0) % Total Bilirubin (0.3-1.2) mg/dL AST (13-35) U/L Total Protein (6.2-8.2) g/dL Albumin (3.8-4.9) g/dL Albumin/Globulin Ratio (1.60-3.17) Ratio 12/10/23 12/10/23 12/10/23 Range/Units 04:27 04:27 07:15 WBC 11.30 H (4.50-10.00) X 10*3/uL RBC 3.25 L (4.10-5.20) X 10*6/uL Hgb 9.5 L (12.0-15.0) g/dL Hct 29.0 L (37.2-46.3) % Immature Gran # 0.13 H (0.00-0.04) X 10*3/uL Neutrophils # 8.40 H (1.80-7.70) X 10*3/uL Anion Gap 13.00 H (4.00-12.00) mmol/L BUN 37.1 H (9.0-27.0) mg/dL Creatinine 2.2 H (0.6-1.5) mg/dL Est GFR (CKD-EPI) 25 L (>=60) Glucose 152 H (70-110) mg/dL POC Glucose (mg/dL) 159 H (70-110) mg/dL Hemoglobin A1c (<=6.0) % Total Bilirubin <0.2 L (0.3-1.2) mg/dL AST 12 L (13-35) U/L Total Protein 6.0 L (6.2-8.2) g/dL Albumin 3.4 L (3.8-4.9) g/dL Albumin/Globulin Ratio 1.31 L (1.60-3.17) Ratio // Range/Units 11:32 WBC (4.50-10.00) X 10*3/uL RBC (4.10-5.20) X 10*6/uL Hgb (12.0-15.0) g/dL Hct (37.2-46.3) % Immature Gran # (0.00-0.04) X 10*3/uL Neutrophils # (1.80-7.70) X 10*3/uL Anion Gap (4.00-12.00) mmol/L BUN (9.0-27.0) mg/dL Creatinine (0.6-1.5) mg/dL Est GFR (CKD-EPI) (>=60) Glucose (70-110) mg/dL POC Glucose (mg/dL) 160 H (70-110) mg/dL Hemoglobin A1c (<=6.0) % Total Bilirubin (0.3-1.2) mg/dL AST (13-35) U/L Total Protein (6.2-8.2) g/dL Albumin (3.8-4.9) g/dL Albumin/Globulin Ratio (1.60-3.17) Ratio Assessment and Plan (1) Groin abscess Current Visit: Yes Status: Acute Code(s): L02.214 - CUTANEOUS ABSCESS OF GROIN SNOMED Code(s): 25571027 (2) Sepsis Current Visit: Yes Status: Acute Code(s): A41.9 - SEPSIS, UNSPECIFIED ORGANISM SNOMED Code(s): 42224676 Plan: 1-Patient presented to hospital with sepsis in this patient who did have a fever elevated white count source is likely right groin abscess and cellulitis however CT did not show any drainable abscess 2-patient with renal insufficiency and high risk of nephrotoxicity from vancomycin 3-discontinue clindamycin and will start the patient on daptomycin 4 mg/kg daily 4-nursing staff has been advised to apply warm compression to the area to help make sure the area elevated started to drain to get culture We will follow on clinical condition and cultures to further adjust medication if needed Thank you for this consultation we will follow the patient along with you Dictation was produced using rollApp dictation software. please excuse any grammatical, word or spelling errors. Time with Patient: Greater than 30
[2023-12-10] MEDS ORDERED: GABAPENTIN 300 MG CAP ONE (22:00)
[2023-12-11] MEDS: AMPICILLIN-SULBACTAM 3 GM in SODIUM CHLORIDE 0.9% 100 ML IVPB SCH ×2 (04:10→17:48)
[2023-12-11 07:24] LABS: Glucose,Whole Blood 96 mg/dL (70-110)
--- NOTE | 2023-12-11 09:31 | P.PN ---
Subjective Progress Note Date: 12/10/23 This is a 63-year-old female who presented to the emergency department with increasing pain and swelling of the right groin and medial thigh to buttock area. Patient reports over the last 7 days it has progressively gotten worse and initially she thought it was just a pimple. Patient currently lives in [place] and is out here camping. Patient's primary care provider in her hometown and reports has a history of diabetes mellitus, hypertension, hyperlipidemia. Patient reports she was also having fever over the last few days. Patient's white count is normal on admission and patient did undergo CT of the right thigh area and appears to be consistent with cellulitis. Concern for abscess collection or possible need for drainage on physical exam and will consult general surgery and appreciate input and recommendations. Patient currently started on clindamycin and will discuss with infectious disease as patient may require something more than this. Will follow-up on repeat labs and continue with gentle hydration and monitor kidney functions. Blood sugars are completely uncontrolled and will adjust medications and insulins accordingly. 12/10/2023 Patient is seen in follow-up today continues to have episodes of diarrhea and right thigh and groin induration with pain and swelling. Patient has been using warm compresses and also evaluated by surgery with no plans for surgical interve ntion at this time recommending continued IV antibiotics. Apparently infectious disease was not consulted and placed a consult as patient was placed on clindamycin by ER although not improving and continues to be febrile. Blood cultures ordered and pending as well. Blood sugars continue to be elevated although better controlled and will continue current regimen. Hemoglobin A1c significantly elevated as patient is likely noncompliant with medications outpatient. Patient reports she is on Januvia and Ozempic with her primary care provider. Review of systems: Constitutional: No reports of fatigue, fever, or chills Cardiovascular: No reports of chest pain or palpitations Respiratory: No reports of shortness of breath or cough GI: reports of nausea, reports indigestion and acid reflux, no vomiting, reports continued diarrhea : No reports of dysuria or retention Neurovascular: No reports of weakness or numbness, reports right thigh pain All medications have been reviewed PHYSICAL EXAMINATION: GENERAL: The patient is alert and oriented x3, not in any acute distress. Well developed, well nourished. Elderly appearing, obese HEENT: Pupils are round and equally reacting to light. EOMI. No scleral icterus. No conjunctival pallor. Normocephalic, atraumatic. No pharyngeal erythema. No thyromegaly. CARDIOVASCULAR: S1 and S2 present. No murmurs, rubs, or gallops. PULMONARY: Chest is clear to auscultation, no wheezing or crackles. ABDOMEN: Soft, obese, nontender, nondistended, normoactive bowel sounds. No palpable organomegaly. MUSCULOSKELETAL: No joint swelling or deformity. EXTREMITIES: No cyanosis, clubbing, or pedal edema. Right medial groin and thigh area with significant redness and discoloration and induration NEUROLOGICAL: Gross neurological examination did not reveal any focal deficits. SKIN: No rashes. Other than mentioned above Assessment: Right groin pain with concerns of possible abscess with surrounding cellulitis Fevers, secondary to above Diabetes mellitus, type II, uncontrolled with hyperglycemia, pending hemoglobin A1c Obesity with a BMI of 35.4 NIKOLE, acute tubular necrosis History of hyperlipidemia History of hypertension History of right BKA in 2021, surgical site is healed and well approximated with no redness or swelling noted GI prophylaxis DVT prophylaxis Full code Plan: The patient was started on antibiotics and will consult infectious disease as patient was initiated on clindamycin although showing no significant improvement and patient continues to be febrile and white count elevated Home medications reviewed and resumed as appropriate. Will continue with Accu- Cheks before meals and at bedtime and sliding scale along with long-acting. Patient's blood sugars are completely uncontrolled and patient reports she has n ot been able to control her sugars over the last few days. Hemoglobin A1c is well above 12 Continue appropriate home medications and have decreased the dosing on gabapentin as patient's kidney functions were elevated although are trending down We will continue gentle IV hydration and follow-up with repeat labs in the morning. general surgery has evaluated the patient for possible abscess or fluid collection as the area is significantly reddened with discoloration and induration. No plans for surgical intervention at this time recommending conservative management and antibiotics Recommend warm compresses 3 times daily to the area Repeat labs ordered for a.m. The impression and plan of care has been dictated by Betty Stewart, Nurse Practitioner as directed. Dr. Sheyla MD I have performed a history and examination and MDM of this patient, discussed the same with the dictator, and agree with the dictator's assessment and plan as written ,documented as a scribe. Based on total visit time, I have performed more than 50% of the visit. Objective - Vital Signs Vital signs: Vital Signs Temp 98.0 F 12/11/23 07:12 Pulse 81 12/11/23 07:12 Resp 16 12/11/23 07:12 BP 146/70 12/11/23 07:12 Pulse Ox 97 12/11/23 07:12 FiO2 Intake & Output 12/10/23 12/11/23 12/11/23 18:59 06:59 18:59 Intake Total 1050 Output Total 800 Balance 250 Weight 90.718 kg Intake: Intake, IV Titration 1050 Amount Ampicillin-Sulbactam 3 gm 200 In Sodium Chloride 0.9% 100 ml @ 200 mls/hr IVPB Q8H [facility] Rx#:[id number] DAPTOmycin 300 mg In 100 Sodium Chloride 0.9% 50 ml @ 100 mls/hr IVPB Q48H [facility] Rx#:[id number] Sodium Chloride 0.9% 1, 750 000 ml @ 75 mls/hr IV . [id number] [facility] Rx#:[id number] Output: Urine 800 Other: Voiding Method Bedside Commode - Labs CBC & Chem 7: 12/10/23 04:27 12/10/23 04:27 Labs: Abnormal Lab Results - Last 24 Hours (Table) 12/10/23 12/10/23 12/10/23 Range/Units 04:27 04:27 11:32 WBC 11.30 H (4.50-10.00) X 10*3/uL RBC 3.25 L (4.10-5.20) X 10*6/uL Hgb 9.5 L (12.0-15.0) g/dL Hct 29.0 L (37.2-46.3) % Immature Gran # 0.13 H (0.00-0.04) X 10*3/uL Neutrophils # 8.40 H (1.80-7.70) X 10*3/uL Anion Gap 13.00 H (4.00-12.00) mmol/L BUN 37.1 H (9.0-27.0) mg/dL Creatinine 2.2 H (0.6-1.5) mg/dL Est GFR (CKD-EPI) 25 L (>=60) Glucose 152 H (70-110) mg/dL POC Glucose (mg/dL) 160 H (70-110) mg/dL Total Bilirubin <0.2 L (0.3-1.2) mg/dL AST 12 L (13-35) U/L Total Protein 6.0 L (6.2-8.2) g/dL Albumin 3.4 L (3.8-4.9) g/dL Albumin/Globulin Ratio 1.31 L (1.60-3.17) Ratio 12/10/23 Range/Units 20:04 WBC (4.50-10.00) X 10*3/uL RBC (4.10-5.20) X 10*6/uL Hgb (12.0-15.0) g/dL Hct (37.2-46.3) % Immature Gran # (0.00-0.04) X 10*3/uL Neutrophils # (1.80-7.70) X 10*3/uL Anion Gap (4.00-12.00) mmol/L BUN (9.0-27.0) mg/dL Creatinine (0.6-1.5) mg/dL Est GFR (CKD-EPI) (>=60) Glucose (70-110) mg/dL POC Glucose (mg/dL) 155 H (70-110) mg/dL Total Bilirubin (0.3-1.2) mg/dL AST (13-35) U/L Total Protein (6.2-8.2) g/dL Albumin (3.8-4.9) g/dL Albumin/Globulin Ratio (1.60-3.17) Ratio
[2023-12-11 11:06] LABS: Basophils # (A) 0.03 X 10*3/uL (0.00-0.10); Basophils % (A) 0.3 %; Eosinophils # (A) 0.11 X 10*3/uL (0.04-0.35); HCT 27.3 % (37.2-46.3); HGB 8.9 g/dL (12.0-15.0); Lymphocytes # (A) 1.76 X 10*3/uL (0.90-5.00); Lymphocytes % (A) 15.7 %; MCH 29.3 pg (27.0-32.0); MCHC 32.6 g/dL (32.0-37.0); MCV 89.8 FL (80.0-97.0); Mean Platelet Volume 11.3 FL (9.5-12.2); Monocytes # (A) 0.84 X 10*3/uL (0.20-1.00); Monocytes % (A) 7.5 %; NRBC Per 100 WBC 0 X 10*3/uL (0.00-0.01); Neutrophils # (A) 8.35 X 10*3/uL (1.80-7.70); Neutrophils % (A) 74.6 %; Platelet Count 350 X 10*3/uL (140-440); RBC 3.04 X 10*6/uL (4.10-5.20); RDW 12.2 % (11.5-14.5); WBC 11.19 X 10*3/uL (4.50-10.00)
[2023-12-11 11:14] LABS: ALT 7 U/L (8-44); AST 17 U/L (13-35); Albumin 3.3 g/dL (3.8-4.9); Albumin/Globulin Ratio 1.27 Ratio (1.60-3.17); Alkaline Phosphatase 81 U/L (41-126); BUN/Creat Ratio 12.89 Ratio (12.00-20.00); Blood Urea Nitrogen 23.2 mg/dL (9.0-27.0); Calcium 8.8 mg/dL (8.7-10.3); Carbon Dioxide 23.6 mmol/L (21.6-31.8); Chloride 106 mmol/L (96-109); Globulin 2.6 g/dL (1.6-3.3); Glucose 92 mg/dL (70-110); Sodium 142 mmol/L (135-145); Total Bilirubin 0.2 mg/dL (0.3-1.2); Total Protein 5.9 g/dL (6.2-8.2)
[2023-12-11 12:10] LABS: Glucose,Whole Blood 128 mg/dL (70-110)
[2023-12-11] MEDS: NYSTATIN 100,000UNIT/GM CREAM 30 GM TUBE TOPICAL SCH (12:15)
--- NOTE | 2023-12-11 12:59 | CDI ---
Documentation Clarification Form Date: 12/11/2023 12:46:50 PM From: Gerda Hyman RN, CCDS Phone: [phone] Admit Date: 12/09/2023 02:15:00 AM Patient Name: Ally Bhat Visit Number: [id number] Discharge Date: ATTENTION: The Clinical Documentation Specialists (CDI) and [facility] Coding Staff appreciate your assistance in clarifying documentation. Please respond to the clarification below the line at the bottom and electronically sign. The CDI & [facility] Coding staff will review the response and follow-up if needed. Please note: Queries are made part of the Legal Health Record. If you have any questions, please contact the author of this message via ITS. Doctor Abundio Carrion Sepsis is documented by the ID customer service sales consultant. Based on this information and the findings below, clarification is requested. Patient history/risk factors: DM, HLFD, obesity, HTN and right BKA. Presents with complaints of abscess in her right groin. Admitted with cellulitis Clinical Indicators: 12/09 H&P: "Right groin pain with concerns of possible abscess with surrounding cellulitis. Diabetes mellitus, type II, uncontrolled with hyperglycemia, pending hemoglobin A1c." 12/09 ID consult: "Patient presented to hospital, did have a fever and elevated white count. Source is likely right groin abscess and cellulitis however CT did not show any drainable abscess." 12/08-12/10 WBC: 9.2-9.5-11.3-11.19 12/08 lactic acid: 1.0 12/08 procalcitonin: 0.39 12/08 CRP: 26.4 Treatment: Tylenol 1000mg x1 on 12/08 then 650mg po Q6H prn; IV Unasyn 3gm Q8H 12/10; IV Clindamycin 600mg Q8H 12/08-12/09; 1L 0.9 NS IV bolus x1 on 12/08 then 75mL/hr 12/08-12/10 Please clarify Sepsis diagnosis: [ x ] Sepsis ruled in [ ] Sepsis ruled out [ ] No additional diagnosis/Not clinically significant [ ] Unable to determine [ ] Other, please specify MTDD
--- NOTE | 2023-12-11 13:07 | CDI ---
Documentation Clarification Form Date: 12/11/2023 12:59:20 PM From: Gerda Hyman RN, CCDS Phone: [phone] Admit Date: 12/09/2023 02:15:00 AM Patient Name: Ally Bhat Visit Number: [id number] Discharge Date: ATTENTION: The Clinical Documentation Specialists (CDI) and [facility] Coding Staff appreciate your assistance in clarifying documentation. Please respond to the clarification below the line at the bottom and electronically sign. The CDI & [facility] Coding staff will review the response and follow-up if needed. Please note: Queries are made part of the Legal Health Record. If you have any questions, please contact the author of this message via ITS. Doctor Abundio Carrion Cellulitis is documented in the H&P and progress notes. Additional clarification regarding the type of cellulitis is requested. Patient history/risk factors: DM, HLD, obesity, HTN and right BKA. Presents with complaints of abscess in her right groin. Admitted with cellulitis. Clinical Indicators: 12/09 H&P: "Right groin pain with concerns of possible abscess with surrounding cellulitis. Diabetes mellitus, type II, uncontrolled with hyperglycemia, pending hemoglobin A1c." 12/09 ID consult: "Patient presented to hospital with sepsis in this patient who did have a fever elevated white count source is likely right groin abscess and cellulitis however CT did not show any drainable abscess." 12/09 IM: "Hemoglobin A1c significantly elevated as patient is likely noncompliant with medications outpatient." 12/08-12/10 Glucose: [id number] Treatment: Tylenol 1000mg x1 on 12/08 then 650mg po Q6H prn; IV Unasyn 3gm Q8H 12/10; IV Clindamycin 600mg Q8H 12/08-12/09; 1L 0.9 NS IV bolus x1 on 12/08 then 75mL/hr 12/08-12/10; Aspart insulin SQ ACHS; Humulin R 10 units IV x1 on 12/08; Levemir 30 units SQ BID 12/08-12/10 Please clarify the etiology of the cellulitis, if known: [ x] Cellulitis is a diabetic skin complication [ ] Cellulitis is not a diabetic skin complication [ ] Other, please specify: [ ] Unable to determine MTDD
--- NOTE | 2023-12-11 15:42 | P.PN ---
Subjective Progress Note Date: 12/11/23 Principal diagnosis: Reason for follow-up is fever and groin abscess Patient is a 63-year-old female with a past medical history significant for diabetes mellitus hypertension hyperlipidemia presenting to the ER for evaluation of painful swelling to the right groin area, patient did have a CT did not show any drainable abscess has been evaluated by general surgery no drainage. On today's evaluation that is 12/11/2023, patient has been febrile with a temperature of 102.3 indicative follow-up at a 2 AM, patient is breathing comfortably and is currently on room air, patient denies having any significant cough no chest pain shortness of breath, patient denies nausea vomiting or diarrhea and the groin pain has decreased in intensity. Patient white count is 11.19 creatinine is 1.8 Objective - Vital Signs Vital signs: Vital Signs Temp 100.1 F H 12/11/23 12:04 Pulse 96 12/11/23 12:04 Resp 16 12/11/23 12:04 BP 170/89 12/11/23 12:04 Pulse Ox 95 12/11/23 12:04 FiO2 Intake & Output 12/10/23 12/11/23 12/11/23 18:59 06:59 18:59 Intake Total 1050 Output Total 800 Balance 250 Weight 90.718 kg Intake: Intake, IV Titration 1050 Amount Ampicillin-Sulbactam 3 gm 200 In Sodium Chloride 0.9% 100 ml @ 200 mls/hr IVPB Q8H [facility] Rx#:[id number] DAPTOmycin 300 mg In 100 Sodium Chloride 0.9% 50 ml @ 100 mls/hr IVPB Q48H [facility] Rx#:[id number] Sodium Chloride 0.9% 1, 750 000 ml @ 75 mls/hr IV . [id number] [facility] Rx#:[id number] Output: Urine 800 Other: Voiding Method Bedside Commode - Exam GENERAL DESCRIPTION: Middle-aged female lying in bed in no distress RESPIRATORY SYSTEM: Unlabored breathing , decreased breath sounds at bases HEART: S1 S2 regular rate and rhythm , ABDOMEN: Soft , no tenderness EXTREMITIES: No edema feet - Labs CBC & Chem 7: 12/11/23 07:58 12/11/23 07:58 Labs: Abnormal Lab Results - Last 24 Hours (Table) 08/28/24 08/29/24 08/29/24 Range/Units 20:04 07:58 07:58 WBC 11.19 H (4.50-10.00) X 10*3/uL RBC 3.04 L (4.10-5.20) X 10*6/uL Hgb 8.9 L (12.0-15.0) g/dL Hct 27.3 L (37.2-46.3) % Immature Gran # 0.10 H (0.00-0.04) X 10*3/uL Neutrophils # 8.35 H (1.80-7.70) X 10*3/uL Anion Gap 12.40 H (4.00-12.00) mmol/L Creatinine 1.8 H (0.6-1.5) mg/dL Est GFR (CKD-EPI) 32 L (>=60) POC Glucose (mg/dL) 155 H (70-110) mg/dL Total Bilirubin 0.2 L (0.3-1.2) mg/dL ALT 7 L (8-44) U/L Total Protein 5.9 L (6.2-8.2) g/dL Albumin 3.3 L (3.8-4.9) g/dL Albumin/Globulin Ratio 1.27 L (1.60-3.17) Ratio 12/11/23 Range/Units 12:07 WBC (4.50-10.00) X 10*3/uL RBC (4.10-5.20) X 10*6/uL Hgb (12.0-15.0) g/dL Hct (37.2-46.3) % Immature Gran # (0.00-0.04) X 10*3/uL Neutrophils # (1.80-7.70) X 10*3/uL Anion Gap (4.00-12.00) mmol/L Creatinine (0.6-1.5) mg/dL Est GFR (CKD-EPI) (>=60) POC Glucose (mg/dL) 128 H (70-110) mg/dL Total Bilirubin (0.3-1.2) mg/dL ALT (8-44) U/L Total Protein (6.2-8.2) g/dL Albumin (3.8-4.9) g/dL Albumin/Globulin Ratio (1.60-3.17) Ratio Assessment and Plan (1) Groin abscess Current Visit: Yes Status: Acute Code(s): L02.214 - CUTANEOUS ABSCESS OF GROIN SNOMED Code(s): 08882542 (2) Sepsis Current Visit: Yes Status: Acute Code(s): A41.9 - SEPSIS, UNSPECIFIED ORGANISM SNOMED Code(s): 02730896 Plan: 1-Patient presented to hospital with sepsis in this patient who did have a fever elevated white count source is likely right groin abscess and cellulitis however CT did not show any drainable abscess 2-patient with renal insufficiency and high risk of nephrotoxicity from vancomycin 3-with persistent fever may benefit from surgical debridement and deep culture patient is covered with Unasyn and daptomycin to continue and will monitor clinical course closely Dictation was produced using [employer] dictation software. please excuse any grammatical, word or spelling errors. Time with Patient: Less than 30
--- NOTE | 2023-12-11 17:09 | P.PN ---
Subjective Progress Note Date: 12/11/23 CHIEF COMPLAINT: right groin induration HISTORY OF PRESENT ILLNESS: patient reports less pain in the right groin. No drainage. She did have a fever of 102.3. She does complain of yeast irritation in the right groin.WBC 11.19 patient seen and examined with Dr. kim PHYSICAL EXAM: VITAL SIGNS: Reviewed. GENERAL: Well-developed in no acute distress. ABDOMEN: Soft. Nondistended. Nontender. right groin induration with mild tenderness to palpation. No drainage. Mild fluctuance noted. Candidiasis noticed it in the right groin NEUROLOGIC: Alert and oriented. Cranial nerves II through XII grossly intact. ASSESSMENT: 1. right groin induration with no evidence of abscess on CT 2. Uncontrolled diabetes mellitus PLAN: -No surgical intervention planned -add nystatin cream to the right groin -Continue IV antibiotics -Continue to monitor -Recommend blood sugar control Physician [employer]ic note has been reviewed by physician. Signing provider agrees with the documented findings, assessment, and plan of care. Objective - Vital Signs Vital signs: Vital Signs Temp 100.1 F H 12/11/23 12:04 Pulse 96 12/11/23 12:04 Resp 16 12/11/23 12:04 BP 170/89 12/11/23 12:04 Pulse Ox 95 12/11/23 12:04 FiO2 Intake & Output 12/10/23 12/11/23 12/11/23 18:59 06:59 18:59 Intake Total 1050 Output Total 800 Balance 250 Weight 90.718 kg Intake: Intake, IV Titration 1050 Amount Ampicillin-Sulbactam 3 gm 200 In Sodium Chloride 0.9% 100 ml @ 200 mls/hr IVPB Q8H [facility] Rx#:[id number] DAPTOmycin 300 mg In 100 Sodium Chloride 0.9% 50 ml @ 100 mls/hr IVPB Q48H [facility] Rx#:[id number] Sodium Chloride 0.9% 1, 750 000 ml @ 75 mls/hr IV . [id number] [facility] Rx#:[id number] Output: Urine 800 Other: Voiding Method Bedside Commode - Labs CBC & Chem 7: 12/11/23 07:58 12/11/23 07:58 Labs: Abnormal Lab Results - Last 24 Hours (Table) 12/10/23 12/11/23 12/11/23 Range/Units 20:04 07:58 07:58 WBC 11.19 H (4.50-10.00) X 10*3/uL RBC 3.04 L (4.10-5.20) X 10*6/uL Hgb 8.9 L (12.0-15.0) g/dL Hct 27.3 L (37.2-46.3) % Immature Gran # 0.10 H (0.00-0.04) X 10*3/uL Neutrophils # 8.35 H (1.80-7.70) X 10*3/uL Anion Gap 12.40 H (4.00-12.00) mmol/L Creatinine 1.8 H (0.6-1.5) mg/dL Est GFR (CKD-EPI) 32 L (>=60) POC Glucose (mg/dL) 155 H (70-110) mg/dL Total Bilirubin 0.2 L (0.3-1.2) mg/dL ALT 7 L (8-44) U/L Total Protein 5.9 L (6.2-8.2) g/dL Albumin 3.3 L (3.8-4.9) g/dL Albumin/Globulin Ratio 1.27 L (1.60-3.17) Ratio 12/11/23 Range/Units 12:07 WBC (4.50-10.00) X 10*3/uL RBC (4.10-5.20) X 10*6/uL Hgb (12.0-15.0) g/dL Hct (37.2-46.3) % Immature Gran # (0.00-0.04) X 10*3/uL Neutrophils # (1.80-7.70) X 10*3/uL Anion Gap (4.00-12.00) mmol/L Creatinine (0.6-1.5) mg/dL Est GFR (CKD-EPI) (>=60) POC Glucose (mg/dL) 128 H (70-110) mg/dL Total Bilirubin (0.3-1.2) mg/dL ALT (8-44) U/L Total Protein (6.2-8.2) g/dL Albumin (3.8-4.9) g/dL Albumin/Globulin Ratio (1.60-3.17) Ratio
[2023-12-11 17:37] LABS: Glucose,Whole Blood 202 mg/dL (70-110)
[2023-12-11] MEDS: ACETAMINOPHEN TAB 500 MG TAB PO PRN (17:47)
[2023-12-11 20:11] LABS: Glucose,Whole Blood 213 mg/dL (70-110)
[2023-12-11] MEDS: INSULIN ASPART (NovoLOG) 100 UNIT/ML VIAL SQ SCH (21:13)
--- NOTE | 2023-12-12 06:08 | P.PN ---
Subjective Progress Note Date: 12/11/23 This is a 63-year-old female who presented to the emergency department with increasing pain and swelling of the right groin and medial thigh to buttock area. Patient reports over the last 7 days it has progressively gotten worse and initially she thought it was just a pimple. Patient currently lives in [place] and is out here camping. Patient's primary care provider in her hometown and reports has a history of diabetes mellitus, hypertension, hyperlipidemia. Patient reports she was also having fever over the last few days. Patient's white count is normal on admission and patient did undergo CT of the right thigh area and appears to be consistent with cellulitis. Concern for abscess collection or possible need for drainage on physical exam and will consult general surgery and appreciate input and recommendations. Patient currently started on clindamycin and will discuss with infectious disease as patient may require something more than this. Will follow-up on repeat labs and continue with gentle hydration and monitor kidney functions. Blood sugars are completely uncontrolled and will adjust medications and insulins accordingly. 12/10/2023 Patient is seen in follow-up today continues to have episodes of diarrhea and right thigh and groin induration with pain and swelling. Patient has been using warm compresses and also evaluated by surgery with no plans for surgical interve ntion at this time recommending continued IV antibiotics. Apparently infectious disease was not consulted and placed a consult as patient was placed on clindamycin by ER although not improving and continues to be febrile. Blood cultures ordered and pending as well. Blood sugars continue to be elevated although better controlled and will continue current regimen. Hemoglobin A1c significantly elevated as patient is likely noncompliant with medications outpatient. Patient reports she is on Januvia and Ozempic with her primary care provider. 12/11/2023 Patient is seen and evaluated in follow-up today sleeping although arousable. Patient reports she continues to have right thigh and groin pain with swelling and on exam continues to be quite indurated although appears slightly improved and less reddened. Per nursing staff patient had been applying zinc paste and instructed the patient to avoid the area and continue with warm compresses only. Patient does have significant yeast noted in multiple folds of the area on both sides of the groin bilaterally and nystatin powder has been added. General surgery following with no plans for surgical intervention. Patient is continued on antibiotics with infectious disease following and white count is elevated although trending down and patient continues to spike low-grade temps. Patient reports not much of an appetite and the food here is horrible. Patient with extreme noncompliance to diet as patient reports all sugar-free items and diabetic foods she cannot tolerate. Patient's hemoglobin A1c is 15.8. Review of systems: Constitutional: No reports of fatigue, reports of fever, and occasional chills Cardiovascular: No reports of chest pain or palpitations Respiratory: No reports of shortness of breath or cough GI: reports of nausea, reports indigestion and acid reflux that has improved, no vomiting, reports continued diarrhea although getting better, patient reports no appetite and dislikes the food here : No reports of dysuria or retention Neurovascular: No reports of weakness or numbness, reports right thigh pain with some improvement All medications have been reviewed PHYSICAL EXAMINATION: GENERAL: The patient is alert and oriented x3, not in any acute distress. Well developed, well nourished. Elderly appearing, obese HEENT: Pupils are round and equally reacting to light. EOMI. No scleral icterus. No conjunctival pallor. Normocephalic, atraumatic. No pharyngeal erythema. No thyromegaly. CARDIOVASCULAR: S1 and S2 present. No murmurs, rubs, or gallops. PULMONARY: Chest is clear to auscultation, no wheezing or crackles. ABDOMEN: Soft, obese, nontender, nondistended, normoactive bowel sounds. No palpable organomegaly. MUSCULOSKELETAL: No joint swelling or deformity. EXTREMITIES: No cyanosis, clubbing, or pedal edema. Right medial groin and thigh area with significant redness and discoloration and induration NEUROLOGICAL: Gross neurological examination did not reveal any focal deficits. SKIN: No rashes. Other than mentioned above, multiple skin fold areas appear reddened and irritated with concerns of yeast buildup Assessment: Right groin pain with concerns of possible abscess with surrounding cellulitis Fevers, secondary to above Diabetes mellitus, type II, uncontrolled with hyperglycemia, hemoglobin A1c is 15.8 Obesity with a BMI of 35.4 NIKOLE, acute tubular necrosis, improving History of hyperlipidemia History of hypertension History of right BKA in 2021, surgical site is healed and well approximated with no redness or swelling noted GI prophylaxis DVT prophylaxis Full code Plan: The patient was started on antibiotics with infectious disease following. Patient continues to be febrile and white count elevated, white count is trending down Home medications reviewed and resumed as appropriate. Will continue with Accu-Cheks before meals and at bedtime and sliding scale along with long-acting. Patient's blood sugars are completely uncontrolled and patient reports she has not been able to control her sugars over the last few days. Hemoglobin A1c is 15.8. Blood sugars better controlled on current regimen and will continue. Continue appropriate home medications and have decreased the dosing on gabapentin as patient's kidney functions were elevated although are trending down We will continue gentle IV hydration and follow-up with repeat labs in the morning. general surgery has evaluated the patient for possible abscess or fluid collection as the area was significantly reddened with discoloration and induration. No plans for surgical intervention at this time recommending conservative management and antibiotics. Continue warm compresses 3 times daily as there is some improvement in the area Nystatin powder added for multiple folds of the skin that appear yeastlike Patient encouraged oral intake The impression and plan of care has been dictated by Btety Stewart, Nurse Practitioner as directed. Dr. Sheyla MD I have performed a history and examination and MDM of this patient, discussed the same with the dictator, and agree with the dictator's assessment and plan as written ,documented as a scribe. Based on total visit time, I have performed more than 50% of the visit. Objective - Vital Signs Vital signs: Vital Signs Temp 98.0 F 12/11/23 07:12 Pulse 81 12/11/23 07:12 Resp 16 12/11/23 07:12 BP 146/70 12/11/23 07:12 Pulse Ox 97 12/11/23 07:12 FiO2 Intake & Output 12/10/23 12/11/23 12/11/23 18:59 06:59 18:59 Intake Total 1050 Output Total 800 Balance 250 Weight 90.718 kg Intake: Intake, IV Titration 1050 Amount Ampicillin-Sulbactam 3 gm 200 In Sodium Chloride 0.9% 100 ml @ 200 mls/hr IVPB Q8H [facility] Rx#:[id number] DAPTOmycin 300 mg In 100 Sodium Chloride 0.9% 50 ml @ 100 mls/hr IVPB Q48H [facility] Rx#:[id number] Sodium Chloride 0.9% 1, 750 000 ml @ 75 mls/hr IV . [id number] [facility] Rx#:[id number] Output: Urine 800 Other: Voiding Method Bedside Commode - Labs CBC & Chem 7: 12/11/23 07:58 12/11/23 07:58 Labs: Abnormal Lab Results - Last 24 Hours (Table) 12/10/23 12/10/23 12/10/23 Range/Units 04:27 11:32 20:04 WBC 11.30 H (4.50-10.00) X 10*3/uL RBC 3.25 L (4.10-5.20) X 10*6/uL Hgb 9.5 L (12.0-15.0) g/dL Hct 29.0 L (37.2-46.3) % Immature Gran # 0.13 H (0.00-0.04) X 10*3/uL Neutrophils # 8.40 H (1.80-7.70) X 10*3/uL POC Glucose (mg/dL) 160 H 155 H (70-110) mg/dL
[2023-12-12 07:22] LABS: Glucose,Whole Blood 115 mg/dL (70-110)
[2023-12-12 10:39] LABS: Basophils # (A) 0.03 X 10*3/uL (0.00-0.10); Basophils % (A) 0.2 %; Eosinophils # (A) 0.06 X 10*3/uL (0.04-0.35); Eosinophils % (A) 0.5 %; HCT 25.7 % (37.2-46.3); HGB 8.6 g/dL (12.0-15.0); Lymphocytes # (A) 1.43 X 10*3/uL (0.90-5.00); Lymphocytes % (A) 11.1 %; MCH 30.1 pg (27.0-32.0); MCHC 33.5 g/dL (32.0-37.0); MCV 89.9 FL (80.0-97.0); Mean Platelet Volume 11.5 FL (9.5-12.2); Monocytes # (A) 0.82 X 10*3/uL (0.20-1.00); Monocytes % (A) 6.3 %; NRBC Per 100 WBC 0 X 10*3/uL (0.00-0.01); Neutrophils # (A) 10.46 X 10*3/uL (1.80-7.70); Platelet Count 335 X 10*3/uL (140-440); RBC 2.86 X 10*6/uL (4.10-5.20); RDW 12.2 % (11.5-14.5); WBC 12.92 X 10*3/uL (4.50-10.00)
[2023-12-12 10:58] LABS: BUN/Creat Ratio 9.11 Ratio (12.00-20.00); Blood Urea Nitrogen 16.4 mg/dL (9.0-27.0); Calcium 8.1 mg/dL (8.7-10.3); Carbon Dioxide 22.4 mmol/L (21.6-31.8); Chloride 104 mmol/L (96-109); Glucose 89 mg/dL (70-110); Potassium 4.1 mmol/L (3.5-5.5); Sodium 137 mmol/L (135-145)
--- NOTE | 2023-12-12 11:12 | P.PN ---
Subjective Progress Note Date: 12/12/23 Patient feels better. She has less swelling in her groin. On exam vital signs appear stable. Abdomen is soft. Right thigh area has decreased induration. Resolving cellulitis/induration. Patient we discharged home from the medical service. Objective - Vital Signs Vital signs: Vital Signs Temp 99.4 F 12/12/23 07:42 Pulse 93 12/12/23 07:42 Resp 16 12/12/23 07:42 BP 157/65 12/12/23 07:42 Pulse Ox 92 L 12/12/23 07:42 FiO2 Intake & Output 12/11/23 12/12/23 12/12/23 18:59 06:59 18:59 Intake Total 1100 590 Balance 1100 590 Intake: Intake, IV Titration 1100 Amount Ampicillin-Sulbactam 3 gm 200 In Sodium Chloride 0.9% 100 ml @ 200 mls/hr IVPB Q12H [facility] Rx#:[id number] Sodium Chloride 0.9% 1, 900 000 ml @ 75 mls/hr IV . [id number] [facility] Rx#:[id number] Oral 590 Other: Voiding Method Bedside Commode # Voids 3 - Labs CBC & Chem 7: 12/12/23 06:50 12/12/23 06:50 Labs: Abnormal Lab Results - Last 24 Hours (Table) 12/11/23 12/11/23 12/11/23 Range/Units 07:58 12:07 17:33 WBC (4.50-10.00) X 10*3/uL RBC (4.10-5.20) X 10*6/uL Hgb (12.0-15.0) g/dL Hct (37.2-46.3) % Immature Gran # (0.00-0.04) X 10*3/uL Neutrophils # (1.80-7.70) X 10*3/uL Anion Gap 12.40 H (4.00-12.00) mmol/L Creatinine 1.8 H (0.6-1.5) mg/dL Est GFR (CKD-EPI) 32 L (>=60) BUN/Creatinine Ratio (12.00-20.00) Ratio POC Glucose (mg/dL) 128 H 202 H (70-110) mg/dL Calcium (8.7-10.3) mg/dL Total Bilirubin 0.2 L (0.3-1.2) mg/dL ALT 7 L (8-44) U/L Total Protein 5.9 L (6.2-8.2) g/dL Albumin 3.3 L (3.8-4.9) g/dL Albumin/Globulin Ratio 1.27 L (1.60-3.17) Ratio 12/11/23 12/12/23 12/12/23 Range/Units 20:10 06:50 06:50 WBC 12.92 H (4.50-10.00) X 10*3/uL RBC 2.86 L (4.10-5.20) X 10*6/uL Hgb 8.6 L (12.0-15.0) g/dL Hct 25.7 L (37.2-46.3) % Immature Gran # 0.12 H (0.00-0.04) X 10*3/uL Neutrophils # 10.46 H (1.80-7.70) X 10*3/uL Anion Gap (4.00-12.00) mmol/L Creatinine 1.8 H (0.6-1.5) mg/dL Est GFR (CKD-EPI) 32 L (>=60) BUN/Creatinine Ratio 9.11 L (12.00-20.00) Ratio POC Glucose (mg/dL) 213 H (70-110) mg/dL Calcium 8.1 L (8.7-10.3) mg/dL Total Bilirubin (0.3-1.2) mg/dL ALT (8-44) U/L Total Protein (6.2-8.2) g/dL Albumin (3.8-4.9) g/dL Albumin/Globulin Ratio (1.60-3.17) Ratio 12/12/23 Range/Units 07:02 WBC (4.50-10.00) X 10*3/uL RBC (4.10-5.20) X 10*6/uL Hgb (12.0-15.0) g/dL Hct (37.2-46.3) % Immature Gran # (0.00-0.04) X 10*3/uL Neutrophils # (1.80-7.70) X 10*3/uL Anion Gap (4.00-12.00) mmol/L Creatinine (0.6-1.5) mg/dL Est GFR (CKD-EPI) (>=60) BUN/Creatinine Ratio (12.00-20.00) Ratio POC Glucose (mg/dL) 115 H (70-110) mg/dL Calcium (8.7-10.3) mg/dL Total Bilirubin (0.3-1.2) mg/dL ALT (8-44) U/L Total Protein (6.2-8.2) g/dL Albumin (3.8-4.9) g/dL Albumin/Globulin Ratio (1.60-3.17) Ratio
[2023-12-12 12:43] LABS: Glucose,Whole Blood 148 mg/dL (70-110)
--- NOTE | 2023-12-12 12:54 | P.PN ---
Subjective Progress Note Date: 12/12/23 Principal diagnosis: Reason for follow-up is fever and groin abscess Patient is a 63-year-old female with a past medical history significant for diabetes mellitus hypertension hyperlipidemia presenting to the ER for evaluation of painful swelling to the right groin area, patient did have a CT did not show any drainable abscess has been evaluated by general surgery no drainage. On today's evaluation that is 12/12/2023, Patient did have some improvement in the fever pattern with a low-grade fever of 99.4 F this morning patient denies having any chest pain shortness of breath or cough, the patient is breathing comfortably and currently on room air, patient denies any abdominal pain no diarrhea no nausea no vomiting still complaining of pain in relation to the r ight groin area but no drainage. Patient white count is 12.92, creatinine is 1.8 Objective - Vital Signs Vital signs: Vital Signs Temp 99.4 F 12/12/23 07:42 Pulse 93 12/12/23 07:42 Resp 16 12/12/23 07:42 BP 157/65 12/12/23 07:42 Pulse Ox 92 L 12/12/23 07:42 FiO2 Intake & Output 12/11/23 12/12/23 12/12/23 18:59 06:59 18:59 Intake Total 1100 590 Balance 1100 590 Intake: Intake, IV Titration 1100 Amount Ampicillin-Sulbactam 3 gm 200 In Sodium Chloride 0.9% 100 ml @ 200 mls/hr IVPB Q12H [facility] Rx#:[id number] Sodium Chloride 0.9% 1, 900 000 ml @ 75 mls/hr IV . [id number] [facility] Rx#:[id number] Oral 590 Other: Voiding Method Bedside Commode # Voids 3 - Exam GENERAL DESCRIPTION: Middle-aged female lying in bed in no distress RESPIRATORY SYSTEM: Unlabored breathing , decreased breath sounds at bases HEART: S1 S2 regular rate and rhythm , ABDOMEN: Soft , no tenderness, still have significant radiation to the right groin area EXTREMITIES: No edema feet - Labs CBC & Chem 7: 12/12/23 06:50 12/12/23 06:50 Labs: Abnormal Lab Results - Last 24 Hours (Table) 12/11/23 12/11/23 12/12/23 Range/Units 17:33 20:10 06:50 WBC 12.92 H (4.50-10.00) X 10*3/uL RBC 2.86 L (4.10-5.20) X 10*6/uL Hgb 8.6 L (12.0-15.0) g/dL Hct 25.7 L (37.2-46.3) % Immature Gran # 0.12 H (0.00-0.04) X 10*3/uL Neutrophils # 10.46 H (1.80-7.70) X 10*3/uL Creatinine (0.6-1.5) mg/dL Est GFR (CKD-EPI) (>=60) BUN/Creatinine Ratio (12.00-20.00) Ratio POC Glucose (mg/dL) 202 H 213 H (70-110) mg/dL Calcium (8.7-10.3) mg/dL 12/12/23 12/12/23 12/12/23 Range/Units 06:50 07:02 12:29 WBC (4.50-10.00) X 10*3/uL RBC (4.10-5.20) X 10*6/uL Hgb (12.0-15.0) g/dL Hct (37.2-46.3) % Immature Gran # (0.00-0.04) X 10*3/uL Neutrophils # (1.80-7.70) X 10*3/uL Creatinine 1.8 H (0.6-1.5) mg/dL Est GFR (CKD-EPI) 32 L (>=60) BUN/Creatinine Ratio 9.11 L (12.00-20.00) Ratio POC Glucose (mg/dL) 115 H 148 H (70-110) mg/dL Calcium 8.1 L (8.7-10.3) mg/dL Assessment and Plan (1) Groin abscess Current Visit: Yes Status: Acute Code(s): L02.214 - CUTANEOUS ABSCESS OF GROIN SNOMED Code(s): 98853711 (2) Sepsis Current Visit: Yes Status: Acute Code(s): A41.9 - SEPSIS, UNSPECIFIED ORGANISM SNOMED Code(s): 06387915 Plan: 1-Patient presented to hospital with sepsis in this patient who did have a fever elevated white count source is likely right groin abscess and cellulitis however CT did not show any drainable abscess 2-patient with renal insufficiency and high risk of nephrotoxicity from vancomycin 3-patient still has significant duration white count is slightly up we will di scuss with the pharmacy to adjust the dose of daptomycin to daily keeping in mind improvement in creatinine clearance patient has been insisting on going home advised to stay still have significant infection and may benefit from possible I&D Dictation was produced using [employer] dictation software. please excuse any grammatical, word or spelling errors. Time with Patient: Less than 30
--- NOTE | 2023-12-12 15:44 | P.PN ---
Subjective Progress Note Date: 12/12/23 This is a 63-year-old female who presented to the emergency department with increasing pain and swelling of the right groin and medial thigh to buttock area. Patient reports over the last 7 days it has progressively gotten worse and initially she thought it was just a pimple. Patient currently lives in [place] and is out here camping. Patient's primary care provider in her hometown and reports has a history of diabetes mellitus, hypertension, hyperlipidemia. Patient reports she was also having fever over the last few days. Patient's white count is normal on admission and patient did undergo CT of the right thigh area and appears to be consistent with cellulitis. Concern for abscess collection or possible need for drainage on physical exam and will consult general surgery and appreciate input and recommendations. Patient currently started on clindamycin and will discuss with infectious disease as patient may require something more than this. Will follow-up on repeat labs and continue with gentle hydration and monitor kidney functions. Blood sugars are completely uncontrolled and will adjust medications and insulins accordingly. 12/10/2023 Patient is seen in follow-up today continues to have episodes of diarrhea and right thigh and groin induration with pain and swelling. Patient has been using warm compresses and also evaluated by surgery with no plans for surgical intervention at this time recommending continued IV antibiotics. Apparently infectious disease was not consulted and placed a consult as patient was placed on clindamycin by ER although not improving and continues to be febrile. Blood cultures ordered and pending as well. Blood sugars continue to be elevated although better controlled and will continue current regimen. Hemoglobin A1c significantly elevated as patient is likely noncompliant with medications outpatient. Patient reports she is on Januvia and Ozempic with her primary care provider. 12/11/2023 Patient is seen and evaluated in follow-up today sleeping although arousable. Patient reports she continues to have right thigh and groin pain with swelling and on exam continues to be quite indurated although appears slightly improved and less reddened. Per nursing staff patient had been applying zinc paste and instructed the patient to avoid the area and continue with warm compresses only. Patient does have significant yeast noted in multiple folds of the area on both sides of the groin bilaterally and nystatin powder has been added. General surgery following with no plans for surgical intervention. Patient is continued on antibiotics with infectious disease following and white count is elevated although trending down and patient continues to spike low-grade temps. Patient reports not much of an appetite and the food here is horrible. Patient with extreme noncompliance to diet as patient reports all sugar-free items and diabetic foods she cannot tolerate. Patient's hemoglobin A1c is 15.8. 12/12/2023 Patient evaluated today in follow up on the medical floor. Patient continues to have significant swelling and redness to the right thigh and groin. There continus to be a large area of induration although the CT is negative for any abscess. Patient continues on IV antibiotics and ID states patient is still not quite ready for discharge. Labs today showing white blood cell count 12.92, hgb 8.6, BUN 16.4, creatinine 1.8. Blood glucose better controlled. Review of systems: Constitutional: No reports of fatigue, reports of fever, and occasional chills Cardiovascular: No reports of chest pain or palpitations Respiratory: No reports of shortness of breath or cough GI: reports of nausea, reports indigestion and acid reflux that has improved, no vomiting, reports continued diarrhea although getting better, patient reports no appetite and dislikes the food here : No reports of dysuria or retention Neurovascular: No reports of weakness or numbness, reports right thigh pain with some improvement All medications have been reviewed PHYSICAL EXAMINATION: GENERAL: The patient is alert and oriented x3, not in any acute distress. Well developed, well nourished. Elderly appearing, obese HEENT: Pupils are round and equally reacting to light. EOMI. No scleral icterus. No conjunctival pallor. Normocephalic, atraumatic. No pharyngeal erythema. No thyromegaly. CARDIOVASCULAR: S1 and S2 present. No murmurs, rubs, or gallops. PULMONARY: Chest is clear to auscultation, no wheezing or crackles. ABDOMEN: Soft, obese, nontender, nondistended, normoactive bowel sounds. No palpable organomegaly. MUSCULOSKELETAL: No joint swelling or deformity. EXTREMITIES: No cyanosis, clubbing, or pedal edema. Right medial groin and thigh area with significant redness and discoloration and induration NEUROLOGICAL: Gross neurological examination did not reveal any focal deficits. SKIN: No rashes. Other than mentioned above, multiple skin fold areas appear reddened and irritated with concerns of yeast buildup Assessment: Right groin pain with concerns of possible abscess with surrounding cellulitis Fevers, secondary to above Diabetes mellitus, type II, uncontrolled with hyperglycemia, hemoglobin A1c is 15.8 Obesity with a BMI of 35.4 NIKOLE, acute tubular necrosis, improving History of hyperlipidemia History of hypertension History of right BKA in 2021, surgical site is healed and well approximated with no redness or swelling noted GI prophylaxis DVT prophylaxis Full code Plan: The patient was started on antibiotics with infectious disease following. Patient continues to be febrile and white count elevated, white count is trending down Home medications reviewed and resumed as appropriate. Will continue with Accu-Cheks before meals and at bedtime and sliding scale along with long-acting. Patient's blood sugars are completely uncontrolled and patient reports she has not been able to control her sugars over the last few days. Hemoglobin A1c is 15.8. Blood sugars better controlled on current regimen and will continue. Continue appropriate home medications and have decreased the dosing on gabapentin as patient's kidney functions were elevated although are trending down We will continue gentle IV hydration and follow-up with repeat labs in the morning. general surgery has evaluated the patient for possible abscess or fluid collection as the area was significantly reddened with discoloration and induration. No plans for surgical intervention at this time recommending conservative management and antibiotics. Continue warm compresses 3 times daily as there is some improvement in the area Nystatin powder added for multiple folds of the skin that appear yeastlike Patient encouraged oral intake The impression and plan of care has been dictated by Hannah Ni, Nurse Practitioner as directed. Dr. Sheyla MD I have performed a history and examination and MDM of this patient, discussed the same with the dictator, and agree with the dictator's assessment and plan as written ,documented as a scribe. Based on total visit time, I have performed more than 50% of the visit. Objective - Vital Signs Vital signs: Vital Signs Temp 99.4 F 12/12/23 07:42 Pulse 93 12/12/23 07:42 Resp 16 12/12/23 07:42 BP 157/65 12/12/23 07:42 Pulse Ox 92 L 12/12/23 07:42 FiO2 Intake & Output 12/11/23 12/12/23 12/12/23 18:59 06:59 18:59 Intake Total 1100 590 Balance 1100 590 Intake: Intake, IV Titration 1100 Amount Ampicillin-Sulbactam 3 gm 200 In Sodium Chloride 0.9% 100 ml @ 200 mls/hr IVPB Q12H [facility] Rx#:[id number] Sodium Chloride 0.9% 1, 900 000 ml @ 75 mls/hr IV . [id number] [facility] Rx#:[id number] Oral 590 Other: Voiding Method Bedside Commode # Voids 3 - Labs CBC & Chem 7: 12/12/23 06:50 12/12/23 06:50 Labs: Abnormal Lab Results - Last 24 Hours (Table) 12/11/23 12/11/23 12/11/23 Range/Units 07:58 07:58 12:07 WBC 11.19 H (4.50-10.00) X 10*3/uL RBC 3.04 L (4.10-5.20) X 10*6/uL Hgb 8.9 L (12.0-15.0) g/dL Hct 27.3 L (37.2-46.3) % Immature Gran # 0.10 H (0.00-0.04) X 10*3/uL Neutrophils # 8.35 H (1.80-7.70) X 10*3/uL Anion Gap 12.40 H (4.00-12.00) mmol/L Creatinine 1.8 H (0.6-1.5) mg/dL Est GFR (CKD-EPI) 32 L (>=60) POC Glucose (mg/dL) 128 H (70-110) mg/dL Total Bilirubin 0.2 L (0.3-1.2) mg/dL ALT 7 L (8-44) U/L Total Protein 5.9 L (6.2-8.2) g/dL Albumin 3.3 L (3.8-4.9) g/dL Albumin/Globulin Ratio 1.27 L (1.60-3.17) Ratio 12/11/23 12/11/23 12/12/23 Range/Units 17:33 20:10 07:02 WBC (4.50-10.00) X 10*3/uL RBC (4.10-5.20) X 10*6/uL Hgb (12.0-15.0) g/dL Hct (37.2-46.3) % Immature Gran # (0.00-0.04) X 10*3/uL Neutrophils # (1.80-7.70) X 10*3/uL Anion Gap (4.00-12.00) mmol/L Creatinine (0.6-1.5) mg/dL Est GFR (CKD-EPI) (>=60) POC Glucose (mg/dL) 202 H 213 H 115 H (70-110) mg/dL Total Bilirubin (0.3-1.2) mg/dL ALT (8-44) U/L Total Protein (6.2-8.2) g/dL Albumin (3.8-4.9) g/dL Albumin/Globulin Ratio (1.60-3.17) Ratio Assessment and Plan Time with Patient: Less than 30
[2023-12-12 17:24] LABS: Glucose,Whole Blood 168 mg/dL (70-110)
[2023-12-12 20:34] LABS: Glucose,Whole Blood 201 mg/dL (70-110)
[2023-12-13 07:31] LABS: Glucose,Whole Blood 162 mg/dL (70-110)
--- NOTE | 2023-12-13 09:03 | P.PN ---
Subjective Progress Note Date: 12/13/23 Patient remained stable. Her right groin induration has improved. On exam vital signs were stable. Abdomen soft. Rm groin cellulitis and induration is improving. Patient is stable for discharge from surgical standpoint. Objective - Vital Signs Vital signs: Vital Signs Temp 99.0 F 12/13/23 01:50 Pulse 86 12/13/23 01:50 Resp 18 12/13/23 01:50 BP 136/68 12/13/23 01:50 Pulse Ox 94 L 12/13/23 01:50 FiO2 Intake & Output 12/12/23 12/13/23 12/13/23 18:59 06:59 18:59 Intake Total 1080 240 Balance 1080 240 Intake: Oral 1080 240 Other: Voiding Method Bedside Commode # Voids 3 2 - Labs CBC & Chem 7: 12/12/23 06:50 12/12/23 06:50 Labs: Abnormal Lab Results - Last 24 Hours (Table) 12/12/23 12/12/23 12/12/23 Range/Units 06:50 06:50 12:29 WBC 12.92 H (4.50-10.00) X 10*3/uL RBC 2.86 L (4.10-5.20) X 10*6/uL Hgb 8.6 L (12.0-15.0) g/dL Hct 25.7 L (37.2-46.3) % Immature Gran # 0.12 H (0.00-0.04) X 10*3/uL Neutrophils # 10.46 H (1.80-7.70) X 10*3/uL Creatinine 1.8 H (0.6-1.5) mg/dL Est GFR (CKD-EPI) 32 L (>=60) BUN/Creatinine Ratio 9.11 L (12.00-20.00) Ratio POC Glucose (mg/dL) 148 H (70-110) mg/dL Calcium 8.1 L (8.7-10.3) mg/dL 12/12/23 12/12/23 12/13/23 Range/Units 17:19 20:33 07:30 WBC (4.50-10.00) X 10*3/uL RBC (4.10-5.20) X 10*6/uL Hgb (12.0-15.0) g/dL Hct (37.2-46.3) % Immature Gran # (0.00-0.04) X 10*3/uL Neutrophils # (1.80-7.70) X 10*3/uL Creatinine (0.6-1.5) mg/dL Est GFR (CKD-EPI) (>=60) BUN/Creatinine Ratio (12.00-20.00) Ratio POC Glucose (mg/dL) 168 H 201 H 162 H (70-110) mg/dL Calcium (8.7-10.3) mg/dL Microbiology - Last 24 Hours (Table) 12/10/23 22:30 Blood Culture - Preliminary Blood
[2023-12-13 12:36] LABS: Glucose,Whole Blood 213 mg/dL (70-110)
--- NOTE | 2023-12-13 13:51 | US ---
EXAMINATION TYPE: US extremity nonvasc mass RT DATE OF EXAM: 12/13/2023 COMPARISON: CT 12/09/2023 CLINICAL INDICATION: Female, 63 years old with history of abscess, check for fluid; cellulitis in rig ht upper thigh, small "pimple" like area seen 7 days ago, got red and grew, patient states it feels m uch better today and has decreased in size, assess for fluid per order. TECHNIQUE: Soft tissue scan FINDINGS: Edematous tissue are area of palp with possible small collection of hypoechoic material, n ot hypervascular and no fluid pockets seen This area appears to be slightly hypoechoic and may measure up to 2.2 cm in size no corresponding abn ormality on CT. IMPRESSION: 1. Phlegmon versus early abscess formation right groin
[2023-12-13 17:30] LABS: Glucose,Whole Blood 81 mg/dL (70-110)
[2023-12-13 19:59] LABS: Glucose,Whole Blood 190 mg/dL (70-110)
--- NOTE | 2023-12-13 21:18 | P.PN ---
Subjective Progress Note Date: 12/13/23 Principal diagnosis: Reason for follow-up is fever and groin abscess Patient is a 63-year-old female with a past medical history significant for diabetes mellitus hypertension hyperlipidemia presenting to the ER for evaluation of painful swelling to the right groin area, patient did have a CT did not show any drainable abscess has been evaluated by general surgery no drainage. On today's evaluation that is 12/13/2023,the patient did have a low-grade fever 100.3 F this morning patient denies having any chest pain shortness with or cough no nausea vomiting no abdominal pain oral pain induration to the right groin has decreased in intensity. No new lab has been obtained today blood culture currently pending Objective - Vital Signs Vital signs: Vital Signs Temp 99.0 F 12/13/23 01:50 Pulse 86 12/13/23 01:50 Resp 18 12/13/23 01:50 BP 136/68 12/13/23 01:50 Pulse Ox 94 L 12/13/23 01:50 FiO2 Intake & Output 12/12/23 12/13/23 12/13/23 18:59 06:59 18:59 Intake Total 1080 240 Balance 1080 240 Intake: Oral 1080 240 Other: Voiding Method Bedside Commode # Voids 3 2 - Exam GENERAL DESCRIPTION: Middle-aged female lying in bed in no distress RESPIRATORY SYSTEM: Unlabored breathing , decreased breath sounds at bases HEART: S1 S2 regular rate and rhythm , ABDOMEN: Soft , no tenderness, still have significant radiation to the right groin area EXTREMITIES: No edema feet - Labs CBC & Chem 7: 12/12/23 06:50 12/12/23 06:50 Labs: Abnormal Lab Results - Last 24 Hours (Table) 12/12/23 12/12/23 12/12/23 Range/Units 06:50 06:50 12:29 WBC 12.92 H (4.50-10.00) X 10*3/uL RBC 2.86 L (4.10-5.20) X 10*6/uL Hgb 8.6 L (12.0-15.0) g/dL Hct 25.7 L (37.2-46.3) % Immature Gran # 0.12 H (0.00-0.04) X 10*3/uL Neutrophils # 10.46 H (1.80-7.70) X 10*3/uL Creatinine 1.8 H (0.6-1.5) mg/dL Est GFR (CKD-EPI) 32 L (>=60) BUN/Creatinine Ratio 9.11 L (12.00-20.00) Ratio POC Glucose (mg/dL) 148 H (70-110) mg/dL Calcium 8.1 L (8.7-10.3) mg/dL 12/12/23 12/12/23 12/13/23 Range/Units 17:19 20:33 07:30 WBC (4.50-10.00) X 10*3/uL RBC (4.10-5.20) X 10*6/uL Hgb (12.0-15.0) g/dL Hct (37.2-46.3) % Immature Gran # (0.00-0.04) X 10*3/uL Neutrophils # (1.80-7.70) X 10*3/uL Creatinine (0.6-1.5) mg/dL Est GFR (CKD-EPI) (>=60) BUN/Creatinine Ratio (12.00-20.00) Ratio POC Glucose (mg/dL) 168 H 201 H 162 H (70-110) mg/dL Calcium (8.7-10.3) mg/dL Microbiology - Last 24 Hours (Table) 12/10/23 22:30 Blood Culture - Preliminary Blood Assessment and Plan (1) Groin abscess Current Visit: Yes Status: Acute Code(s): L02.214 - CUTANEOUS ABSCESS OF GROIN SNOMED Code(s): 85244259 (2) Sepsis Current Visit: Yes Status: Acute Code(s): A41.9 - SEPSIS, UNSPECIFIED ORGANISM SNOMED Code(s): 74691859 Plan: 1-Patient presented to hospital with sepsis in this patient who did have a fever elevated white count source is likely right groin abscess and cellulitis however CT did not show any drainable abscess 2-patient with renal insufficiency and high risk of nephrotoxicity from vancomycin 3-patient still has significant duration and is running a low-grade fever we will check an ultrasound if any evidence of fluid will benefit from drainage for now continue with the daptomycin and Unasyn Dictation was produced using [employer] dictation software. please excuse any grammatical, word or spelling errors. Time with Patient: Less than 30
[2023-12-14 07:16] LABS: Glucose,Whole Blood 166 mg/dL (70-110)
[2023-12-14 07:46] VITALS: TEMP 98.6
--- NOTE | 2023-12-14 08:48 | P.PN ---
Subjective Progress Note Date: 12/14/23 Patient main stable. She wants to be discharged home. She states her groin cellulitis induration has improved. On exam vital signs appear stable. Abdomen is soft. Groin cellulitis induration has improved. Patient stable for discharge from surgical standpoint. Objective - Vital Signs Vital signs: Vital Signs Temp 98.6 F 12/14/23 07:45 Pulse 85 12/14/23 07:45 Resp 17 12/14/23 07:45 BP 156/71 12/14/23 07:45 Pulse Ox 92 L 12/14/23 07:45 FiO2 Intake & Output 12/13/23 12/14/23 12/14/23 18:59 06:59 18:59 Intake Total 1080 Balance 1080 Intake: Oral 1080 Other: Voiding Method Bedside Commode # Voids 3 2 - Labs CBC & Chem 7: 12/12/23 06:50 12/12/23 06:50 Labs: Abnormal Lab Results - Last 24 Hours (Table) 12/13/23 12/13/23 12/14/23 Range/Units 12:18 19:52 07:11 POC Glucose (mg/dL) 213 H 190 H 166 H (70-110) mg/dL Microbiology - Last 24 Hours (Table) 12/10/23 22:30 Blood Culture - Preliminary Blood
[2023-12-14 10:40] LABS: Basophils # (A) 0.04 X 10*3/uL (0.00-0.10); Basophils % (A) 0.3 %; Eosinophils # (A) 0.12 X 10*3/uL (0.04-0.35); HCT 24.8 % (37.2-46.3); Lymphocytes # (A) 1.25 X 10*3/uL (0.90-5.00); Lymphocytes % (A) 10.7 %; MCH 29.4 pg (27.0-32.0); MCHC 32.3 g/dL (32.0-37.0); MCV 91.2 FL (80.0-97.0); Mean Platelet Volume 11.6 FL (9.5-12.2); Monocytes # (A) 0.85 X 10*3/uL (0.20-1.00); Monocytes % (A) 7.3 %; NRBC Per 100 WBC 0.02 X 10*3/uL (0.00-0.01); Neutrophils # (A) 9.25 X 10*3/uL (1.80-7.70); Neutrophils % (A) 79.1 %; Platelet Count 382 X 10*3/uL (140-440); RBC 2.72 X 10*6/uL (4.10-5.20); RDW 12.3 % (11.5-14.5)
[2023-12-14 12:39] LABS: Glucose,Whole Blood 101 mg/dL (70-110)
[2023-12-14 12:57] LABS: BUN/Creat Ratio 10.85 Ratio (12.00-20.00); Blood Urea Nitrogen 21.7 mg/dL (9.0-27.0); Chloride 108 mmol/L (96-109); Glucose 186 mg/dL (70-110); Potassium 4.1 mmol/L (3.5-5.5); Sodium 142 mmol/L (135-145)
--- NOTE | 2023-12-14 15:06 | P.PN ---
Subjective Progress Note Date: 12/14/23 Principal diagnosis: Reason for follow-up is fever and groin abscess Patient is a 63-year-old female with a past medical history significant for diabetes mellitus hypertension hyperlipidemia presenting to the ER for evaluation of painful swelling to the right groin area, patient did have a CT did not show any drainable abscess has been evaluated by general surgery no drainage. On today's evaluation that is 12/14/2023,the patient remains to be afebrile, patient is on room air not requiring supplemental oxygen and denies any shortness of breath no chest pain or cough.Patient denies having any nausea or vomiting, no abdominal pain and no diarrhea, patient mention overall swelling and pain to the right groin has significant decreased intensity no drainage insisting on going home. Patient white count is down to 11.70, creatinine is 2.0 blood culture has been negative Objective - Vital Signs Vital signs: Vital Signs Temp 98.6 F 12/14/23 07:45 Pulse 85 12/14/23 07:45 Resp 17 12/14/23 07:45 BP 156/71 12/14/23 07:45 Pulse Ox 92 L 12/14/23 07:45 FiO2 Intake & Output 12/13/23 12/14/23 12/14/23 18:59 06:59 18:59 Intake Total 1080 Balance 1080 Intake: Oral 1080 Other: Voiding Method Bedside Commode # Voids 3 2 - Exam GENERAL DESCRIPTION: Middle-aged female lying in bed in no distress RESPIRATORY SYSTEM: Unlabored breathing , decreased breath sounds at bases HEART: S1 S2 regular rate and rhythm , ABDOMEN: Soft , no tenderness, still have significant radiation to the right groin area EXTREMITIES: No edema feet - Labs CBC & Chem 7: 12/14/23 04:30 12/14/23 04:30 Labs: Abnormal Lab Results - Last 24 Hours (Table) 12/13/23 12/14/23 12/14/23 Range/Units 19:52 04:30 04:30 WBC 11.70 H (4.50-10.00) X 10*3/uL RBC 2.72 L (4.10-5.20) X 10*6/uL Hgb 8.0 L (12.0-15.0) g/dL Hct 24.8 L (37.2-46.3) % Immature Gran # 0.19 H (0.00-0.04) X 10*3/uL Neutrophils # 9.25 H (1.80-7.70) X 10*3/uL NRBC/100 WBC Diff 0.02 H (0.00-0.01) X 10*3/uL Creatinine 2.0 H (0.6-1.5) mg/dL Est GFR (CKD-EPI) 28 L (>=60) BUN/Creatinine Ratio 10.85 L (12.00-20.00) Ratio Glucose 186 H (70-110) mg/dL POC Glucose (mg/dL) 190 H (70-110) mg/dL Calcium 8.0 L (8.7-10.3) mg/dL 12/14/23 Range/Units 07:11 WBC (4.50-10.00) X 10*3/uL RBC (4.10-5.20) X 10*6/uL Hgb (12.0-15.0) g/dL Hct (37.2-46.3) % Immature Gran # (0.00-0.04) X 10*3/uL Neutrophils # (1.80-7.70) X 10*3/uL NRBC/100 WBC Diff (0.00-0.01) X 10*3/uL Creatinine (0.6-1.5) mg/dL Est GFR (CKD-EPI) (>=60) BUN/Creatinine Ratio (12.00-20.00) Ratio Glucose (70-110) mg/dL POC Glucose (mg/dL) 166 H (70-110) mg/dL Calcium (8.7-10.3) mg/dL Microbiology - Last 24 Hours (Table) 12/10/23 22:30 Blood Culture - Preliminary Blood Assessment and Plan (1) Groin abscess Current Visit: Yes Status: Acute Code(s): L02.214 - CUTANEOUS ABSCESS OF GROIN SNOMED Code(s): 59285434 (2) Sepsis Current Visit: Yes Status: Acute Code(s): A41.9 - SEPSIS, UNSPECIFIED ORGANISM SNOMED Code(s): 11899171 Plan: 1-Patient presented to hospital with sepsis in this patient who did have a fever elevated white count source is likely right groin abscess and cellulitis however CT did not show any drainable abscess 2-patient with renal insufficiency and high risk of nephrotoxicity from vancomycin 3-patient seem to have shown clinical improvement, still recommending no drainage patient insisting on going home prescription for oral Augmentin doxycycline sent to the pharmacy with instruction if any worsening swelling redness or pain and need to go back to the hospital otherwise follow-up in the office 1 week multiple question concern answered Dictation was produced using [employer] dictation software. please excuse any grammatical, word or spelling errors. Time with Patient: Less than 30
[2023-12-14 15:18] VITALS: BP 163/73; PULSE 75; RESP 18
[2023-12-14 17:24] LABS: Glucose,Whole Blood 167 mg/dL (70-110)
[2023-12-14] MEDS: AMOXIC-POT CLAV 500-125 MG 1 EACH TAB PO STA (19:14)
== END 2023-12-14 19:34 | disposition home or self-care (01) | DRG 720 ==
LOC: EC 23:49 → 5NMEDONC 12-09 02:15
PROVIDERS: ADMIT Internal Medicine; ATTEND Internal Medicine
DX: A41.9 Sepsis, unspecified organism (principal); E11.22 Type 2 diabetes mellitus with diabetic chronic kidney disease; E11.65 Type 2 diabetes mellitus with hyperglycemia; E66.9 Obesity, unspecified; E78.5 Hyperlipidemia, unspecified; I12.9 Hypertensive chronic kidney disease with stage 1 through stage 4 chronic kidney disease, or unspecified chronic kidney disease; L02.214 Cutaneous abscess of groin; L03.314 Cellulitis of groin; N17.0 Acute kidney failure with tubular necrosis; M25.461 Effusion, right knee; E11.628 Type 2 diabetes mellitus with other skin complications; N18.9 Chronic kidney disease, unspecified; Z68.35 Body mass index [BMI] 35.0-35.9, adult; Z79.85 Long-term (current) use of injectable non-insulin antidiabetic drugs; Z79.84 Long term (current) use of oral hypoglycemic drugs; Z91.148 Patient's other noncompliance with medication regimen for other reason; Z91.199 Patient's noncompliance with other medical treatment and regimen due to unspecified reason; Z89.511 Acquired absence of right leg below knee; Z79.899 Other long term (current) drug therapy; Z88.6 Allergy status to analgesic agent; Z88.5 Allergy status to narcotic agent; Z28.310 Unvaccinated for COVID-19; Z28.21 Immunization not carried out because of patient refusal